=== PATIENT | female | born 1955 | race Caucasian/White ===

== ENCOUNTER 2022-09-23 13:11 | Inpatient (IN) | payer MEDICARE, SELFPAY ==
--- NOTE | ~2022-09-23 | CT_ITS ---
EXAMINATION: CT ABDOMEN AND PELVIS WITH CONTRAST CLINICAL INFORMATION: Left lower quadrant abdominal pain COMPARISON: None TECHNIQUE: Multidetector volumetric images were obtained from the superior aspect of the liver through the pubic symphysis following administration 85 mL of Omnipaque 350 intravenous contrast. Sagittal and coronal reformatted images were obtained on the technologist's workstation. Oral contrast: No This CT examination was performed using dose optimization techniques as appropriate, variously including the following: *Automated exposure control *Adjustment of mA and/or kV according to patient size (this includes techniques or standardized protocols for targeted exams where dose is matched to indication/reason for exam; i.e. extremities or head) *Use of iterative reconstruction technique DLP: 290 mGy-cm FINDINGS: LUNG BASES: The pleural-based 5 mm lung nodule posterior medial right lower lobe image 1212 series 14. This is unchanged since CAT scan of 03/03/2015 consistent with a benign nodule. No further follow-up imaging needed. No pleural effusion. LIVER, GALLBLADDER, AND BILIARY TREE: The liver is normal in size, shape, and attenuation. No focal hepatic lesion or biliary ductal dilatation is present. The gallbladder is unremarkable with no evidence of radiopaque gallstones, gallbladder wall thickening, or obvious pericholecystic inflammatory changes. PANCREAS: Unremarkable. SPLEEN: Unremarkable. ADRENAL GLANDS: Unremarkable. KIDNEYS AND URETERS: The kidneys are normal in size, shape, and attenuation. No hydronephrosis, hydroureter, or calculi seen. No perinephric stranding. BLADDER: Unremarkable. GASTROINTESTINAL TRACT: Diverticulosis of the sigmoid colon and descending colon with numerous diverticula. There is a focal area of colonic bowel wall thickening of the junction of descending colon and proximal sigmoid colon with surrounding edema. This may be due to focal diverticulitis. Neoplastic process though not excluded this time. There is no perforation or abscess. No obstruction. Moderate volume of stool in the colon. Status post appendectomy. Small bowel unremarkable. Small hiatal hernia. ABDOMINAL WALL: No significant hernia is appreciated. LYMPH NODES: Normal. VASCULAR: Unremarkable. PELVIC VISCERA: Unremarkable. OSSEOUS STRUCTURES: Unremarkable. CT/CT abdomen pelvis w IV con IMPRESSION: 1. Diverticulosis of the colon. Focal area of colonic bowel wall thickening with surrounding edema at the junction of descending colon and sigmoid colon. This may be due to focal diverticulitis. Neoplastic process though not excluded this time. Recommend follow-up exam to ensure complete resolution. Fleischner guidelines were followed.
--- NOTE | 2022-09-23 13:52 | ED.ABDPAIN ---
HPI - Abdominal Pain General Chief Complaint: Abdominal Pain <EFRA Moreno - Last Filed: 09/23/22 13:55> Stated Complaint: Lower abd pain <EFRA Moreno - Last Filed: 09/23/22 13:55> Time Seen by Provider: 09/23/22 17:56 <EFRA Moreno - Last Filed: 09/23/22 13:55> Source: patient <Cathleen Grossman NP - Last Filed: 09/24/22 00:57> Mode of arrival: ambulatory <Cathleen Grossman NP - Last Filed: 09/24/22 00:57> Limitations: no limitations <Cathleen Grossman NP - Last Filed: 09/24/22 00:57> History of Present Illness HPI narrative: 67-year-old female presents with left lower quadrant abdominal pain that started yesterday. She states the pain is so intense that it difficult for her to eat. She has had 2 C sections and an appendectomy. She does not report any family history of colon cancer, and her last colonoscopy was approximately 7 years ago with no significant findings. She reports to be tired, but denies chest pain or pressure, palpitations, nausea, vomiting, diarrhea, melena, hematochezia, and change in bowel habits. <Cathleen Grossman NP - Last Filed: 09/24/22 00:57> MD elicited complaint: abdominal pain <Cathleen Grossman NP - Last Filed: 09/24/22 00:57> Onset (ago): day(s) (1) <Cathleen Grossman NP - Last Filed: 09/24/22 00:57> Pain Consistency: constant <Cathleen Grossman NP - Last Filed: 09/24/22 00:57> Location: LLQ <Cathleen Grossman NP - Last Filed: 09/24/22 00:57> Severity: severe <Cathleen Grossman NP - Last Filed: 09/24/22 00:57> Pain scale (0-10): 9 <Cathleen Grossman NP - Last Filed: 09/24/22 00:57> Quality: aching <Cathleen Grossman NP - Last Filed: 09/24/22 00:57> Radiation: none <Cathleen Grossman NP - Last Filed: 09/24/22 00:57> Migration to: no migration <MARCY Phillips Last Filed: 09/24/22 00:57> Exacerbating factors: eating and movement <Cathleen Grossman NP - Last Filed: 09/24/22 00:57> Relieving factors: nothing <Cathleen Grossman NP - Last Filed: 09/24/22 00:57> Treatments prior to arrival: NSAIDs <MARCY Phillips Last Filed: 09/24/22 00:57> Related Data Home Medications: Previous Rx's Medication Instructions Recorded clonazepam 0.5 mg tablet 0.5 mg PO DAILY PRN anxiety 30 04/28/22 days #30 tabs <EFRA Moreno - Last Filed: 09/23/22 13:55> Allergies/Adverse Reactions: Allergies Allergy/AdvReac Type Severity Reaction Status Date / Time levofloxacin [Levaquin] AdvReac Intermediate nausea and Verified 09/23/22 13:55 vomiting <EFRA Moreno - Last Filed: 09/23/22 13:55> Review of Systems Review of Systems Constitutional: No Fever, No Chills ENT/Mouth: No Ear Pain, No Hoarseness, No sore throat Eyes: No Eye Pain, No Swelling, No Redness, No Foreign Body Cardiovascular: No Chest Pain, No SOB Respiratory: No Cough, No Dyspnea Gastrointestinal: No Nausea, No Vomiting, No Diarrhea, positive left lower quadrant abdominal Pain Genitourinary: No Dysuria, No Hematuria Musculoskeletal: No joint pain, No Myalgias, No Joint Swelling Skin: No Skin lacerations, No rash Neuro: No Weakness, No Numbness, No Paresthesias, No Loss of Consciousness, No Dizziness, No Headache <MARCY Phillips Last Filed: 09/24/22 00:57> Yes all other systems are reviewed and are negative <Cathleen Grossman NP - Last Filed: 09/24/22 00:57> [facility] Past Medical History Attestation statement: The following information was validated with the patient. <MARCY Phillips Last Filed: 09/24/22 00:57> Source: old records reviewed <Cathleen Grossman NP - Last Filed: 09/24/22 00:57> Medical History: Medical History Anxiety <EFRA Moreno - Last Filed: 09/23/22 13:55> Surgical History: Surgical History History of appendectomy History of section History of tonsillectomy <EFRA Moreno - Last Filed: 09/23/22 13:55> Family History Family History: Family History Father CVD (cardiovascular disease) Mother Lung cancer Diabetes Maternal Uncle Colon cancer Maternal Grandmother Cancer <EFRA Moreno - Last Filed: 09/23/22 13:55> Social History Social History: Social History Housing: House Patient Tobacco Use Status: Former Tobacco user Tobacco use type: Cigarette Smoked in Last 30 Days: No e-Cigarette/Vaping Use: Never Used Second Hand Smoke Exposure: No Use of substances other than those prescribed or required for medical reasons: No Advance Directives: No Advance Directives Information Provided: Yes service: No Current occupational status: employed <EFRA Moreno - Last Filed: 09/23/22 13:55> Physical Exam ED Vital Signs: Vital Signs - 24 hr 09/23/22 13:53 09/23/22 16:59 09/23/22 17:48 Temperature 98.7 F 99.4 F Pulse Rate 107 H 100 104 H Respiratory Rate 16 18 20 Blood Pressure 122/61 134/55 L 127/49 L Pulse Oximetry 98 100 Oxygen Delivery Method Room Air Room Air Oxygen Flow Rate 100 09/23/22 20:09 Temperature 98.6 F Pulse Rate 97 Respiratory Rate Blood Pressure 106/38 L Pulse Oximetry 97 Oxygen Delivery Method Room Air Oxygen Flow Rate BMI result Body Mass Index 18.8 <EFRA Moreno - Last Filed: 09/23/22 13:55> Vital Signs - 24 hr 09/23/22 13:53 09/23/22 16:59 12/09/22 17:48 Temperature 98.7 F 99.4 F Pulse Rate 107 H 100 104 H Respiratory Rate 16 18 20 Blood Pressure 122/61 134/55 L 127/49 L Pulse Oximetry 98 100 Oxygen Delivery Method Room Air Room Air Oxygen Flow Rate 100 09/23/22 20:09 Temperature 98.6 F Pulse Rate 97 Respiratory Rate Blood Pressure 106/38 L Pulse Oximetry 97 Oxygen Delivery Method Room Air Oxygen Flow Rate BMI result Body Mass Index 18.8 <Cathleen Grossman NP - Last Filed: 09/24/22 00:57> Appearance: Alert. Oriented X3. Moderate distress. Eyes: Pupils equal, round and reactive to light. ENT: Pharynx normal. Neck: Normal inspection. Neck supple. CVS: Tachycardic heart rate and rhythm. Pulses normal. Respiratory: No respiratory distress. Breath sounds normal. Abdomen: Soft and left lower quadrant tenderness to palpation, no distention or rigidity. No rebound. Skin: Skin warm and dry. Normal skin color. Normal skin turgor. Extremities: No lower extremity edema. Gait well-balanced well coordinated. Neuro: No motor deficit. No sensory deficit. Cranial nerves 2-12 intact. <Cathleen Grossman NP - Last Filed: 09/24/22 00:57> Course Course Course Narrative: RME--67yo F w/pmhx anxiety c/o LLQ abd pain since last night. Reports pain is constant, nonradiating. Denies associated fever, chills, nausea/vomiting, diarrhea/constipation, dysuria/hematuria, vaginal bleeding/discharge Abdomen soft with left lower quadrant tenderness on exam, no CVA tenderness. Concern for diverticulitis Plan: Labs, UA, CT abdomen/pelvis, IV have ordered triage <EFRA Moreno - Last Filed: 09/23/22 13:55> RME--67yo F w/pmhx anxiety c/o LLQ abd pain since last night. Reports pain is constant, nonradiating. Denies associated fever, chills, nausea/vomiting, diarrhea/constipation, dysuria/hematuria, vaginal bleeding/discharge Abdomen soft with left lower quadrant tenderness on exam, no CVA tenderness. Concern for diverticulitis Plan: Labs, UA, CT abdomen/pelvis, IV have ordered triage 67-year-old female presents for left lower quadrant abdominal pain. Labs drawn while she was in the emergency department waiting room, white count of 15.2, H&H 13.3/40.1, lactic 1.1, low likelihood of sepsis at this time. 20:20 CT scan indicates diverticulosis with focal area of colonic bowel wall thickening and surrounding edema at the junction of the descending colon and sigmoid colon. This may be focal diverticulitis versus neoplastic process. Plan of care is for admission. I did discuss this case with the hospitalist as well as Gastroenterology. Gastroenterology will round on her in the morning. Patient will be admitted for colitis versus neoplasm. Patient verbalized understanding of and agrees to plan of care for admission. Verbalized understanding of signs and symptoms indicating need for emergent intervention. <Cathleen Grossman NP - Last Filed: 09/24/22 00:57> Consultations Consultation #1: Veena <Cathleen Grossman NP - Last Filed: 09/24/22 00:57> Time: 20:20 <Cathleen Grossman NP - Last Filed: 09/24/22 00:57> Consultation #2: Yehuda <Cathleen Grossman NP - Last Filed: 09/24/22 00:57> Time: 20:25 <Cathleen Grossman NP - Last Filed: 09/24/22 00:57> Medical Decision Making Medical Decision Making Differential Diagnoses: Differential diagnosis (Diverticulitis, colitis, perforated bowel, abdominal abscess) <Cathleen Grossman NP - Last Filed: 09/24/22 00:57> Consideration of admission/observation: Consideration of Admission/Observation (Patient will be admitted) <Cathleen Grossman NP - Last Filed: 09/24/22 00:57> Discussion of management with other physician/healthcare provider/other source (e.g., hospitalist, furniture rental consultant, behavioral health): Discussion w/other physician/healthcare provider Management of the patient was discussed with: Hospitalist and Insulation Nozzleman My interpretation is <MARCY Phillips Last Filed: 09/24/22 00:57> Lab Attestation: I reviewed the patient's lab results. <MARCY Phillips Last Filed: 09/24/22 00:57> Discussion of test interpretation with radiology: Discussion of test interpretation with radiology FINDINGS: LUNG BASES: The pleural-based 5 mm lung nodule posterior medial right lower lobe image 1212 series 14. This is unchanged since CAT scan of 03/03/2015 consistent with a benign nodule. No further follow-up imaging needed. No pleural effusion.? LIVER, GALLBLADDER, AND BILIARY TREE: The liver is normal in size, shape, and attenuation. No focal hepatic lesion or biliary ductal dilatation is present. The gallbladder is unremarkable with no evidence of radiopaque gallstones, gallbladder wall thickening, or obvious pericholecystic inflammatory changes.? PANCREAS: Unremarkable.? SPLEEN: Unremarkable.? ADRENAL GLANDS: Unremarkable.? KIDNEYS AND URETERS: The kidneys are normal in size, shape, and attenuation. No hydronephrosis, hydroureter, or calculi seen. No perinephric stranding. ? BLADDER: Unremarkable.? GASTROINTESTINAL TRACT: Diverticulosis of the sigmoid colon and descending colon with numerous diverticula. There is a focal area of colonic bowel wall thickening of the junction of descending colon and proximal sigmoid colon with surrounding edema. This may be due to focal diverticulitis. Neoplastic process though not excluded this time. There is no perforation or abscess. No obstruction. Moderate volume of stool in the colon. Status post appendectomy. Small bowel unremarkable. Small hiatal hernia. ABDOMINAL WALL: No significant hernia is appreciated.? LYMPH NODES: Normal. VASCULAR: Unremarkable. PELVIC VISCERA: Unremarkable.? OSSEOUS STRUCTURES: Unremarkable.? CT/CT abdomen pelvis w IV con IMPRESSION: 1.? Diverticulosis of the colon. Focal area of colonic bowel wall thickening with surrounding edema at the junction of descending colon and sigmoid colon. This may be due to focal diverticulitis. Neoplastic process though not excluded this time. Recommend follow-up exam to ensure complete resolution. ? Fleischner guidelines were followed. <Cathleen Grossman NP - Last Filed: 09/24/22 00:57> Medications Administered Generic Name Dose Route Start Last Admin Trade Name Freq PRN Reason Stop Dose Admin Enoxaparin Sodium 40 mg 09/23/22 22:00 09/23/22 22:36 Enoxaparin Sodium 40 Mg/0.4 Ml Syringe SUBCUT 40 mg Q24H BOUBACAR Administration Sodium Chloride 3 ml 09/24/22 00:00 09/23/22 23:52 0.9 % Sodium Chloride Flush 3 Ml Syringe IVFLUSH Not Given QSHIFT BOUBACAR Discontinued Medications Generic Name Dose Route Start Last Admin Trade Name Charly PRN Reason Stop Dose Admin Acetaminophen 650 mg 09/23/22 19:30 09/23/22 19:39 Acetaminophen 325 Mg Tablet PO 09/23/22 19:31 650 mg ONCE ONE Administration Sodium Chloride 1,000 mls @ 999 mls/hr 09/23/22 14:00 09/23/22 19:02 Ns IV 09/23/22 15:00 Infused .Q1H1M BOUBACAR Infusion Ceftriaxone Sodium 1 gm/ 50 mls @ 100 mls/hr 09/23/22 18:15 09/23/22 19:31 Sodium Chloride IV 09/23/22 18:44 Infused ONCE ONE Infusion Metronidazole 500 mg in 100 mls @ 100 mls/hr 09/23/22 18:15 09/23/22 20:46 Flagyl IV 09/23/22 19:14 Infused ONCE ONE Infusion Sodium Chloride 1,360.77 mls @ 1,360.77 mls/hr 09/23/22 21:22 09/23/22 22:35 Ns 30 ml/kg infuse over 1 hr (1360.77 ml) 09/23/22 22:21 1,360.77 mls/hr IV Administration .Q1H STA Ceftriaxone Sodium 1 gm/ 50 mls @ 100 mls/hr 09/23/22 21:23 09/23/22 22:29 Sodium Chloride IV 09/23/22 21:52 Not Given ONCE ONE Iohexol 100 ml 09/23/22 18:11 09/23/22 18:12 Iohexol 350 Mg/Ml 100 Ml Infus..Btl IV 09/23/22 18:12 85 ml ONCE ONE Administration Morphine Sulfate 2 mg 09/23/22 19:30 09/23/22 20:25 Morphine Sulfate 2 Mg/Ml Cartridge IVPUSH 09/23/22 19:31 Not Given ONCE ONE Protocol Ondansetron HCl 4 mg 09/23/22 19:30 09/23/22 20:26 Ondansetron Hcl 4 Mg/2 Ml Vial IVPUSH 09/23/22 19:31 Not Given ONCE ONE <EFRA Moreno - Last Filed: 09/23/22 13:55> Medications Administered Generic Name Dose Route Start Last Admin Trade Name Frestone PRN Reason Stop Dose Admin Enoxaparin Sodium 40 mg 09/23/22 22:00 09/23/22 22:36 Enoxaparin Sodium 40 Mg/0.4 Ml Syringe SUBCUT 40 mg Q24H BOUBACAR Administration Sodium Chloride 3 ml 09/24/22 00:00 09/23/22 23:52 0.9 % Sodium Chloride Flush 3 Ml Syringe IVFLUSH Not Given QSHIFT BOUBACAR Discontinued Medications Generic Name Dose Route Start Last Admin Trade Name Charly PRN Reason Stop Dose Admin Acetaminophen 650 mg 09/23/22 19:30 09/23/22 19:39 Acetaminophen 325 Mg Tablet PO 09/23/22 19:31 650 mg ONCE ONE Administration Sodium Chloride 1,000 mls @ 999 mls/hr 09/23/22 14:00 09/23/22 19:02 Ns IV 09/23/22 15:00 Infused .Q1H1M BOUBACAR Infusion Ceftriaxone Sodium 1 gm/ 50 mls @ 100 mls/hr 09/23/22 18:15 09/23/22 19:31 Sodium Chloride IV 09/23/22 18:44 Infused ONCE ONE Infusion Metronidazole 500 mg in 100 mls @ 100 mls/hr 09/23/22 18:15 09/23/22 20:46 Flagyl IV 09/23/22 19:14 Infused ONCE ONE Infusion Sodium Chloride 1,360.77 mls @ 1,360.77 mls/hr 09/23/22 21:22 09/23/22 22:35 Ns 30 ml/kg infuse over 1 hr (1360.77 ml) 09/23/22 22:21 1,360.77 mls/hr IV Administration .Q1H STA Ceftriaxone Sodium 1 gm/ 50 mls @ 100 mls/hr 09/23/22 21:23 09/23/22 22:29 Sodium Chloride IV 09/23/22 21:52 Not Given ONCE ONE Iohexol 100 ml 09/23/22 18:11 09/23/22 18:12 Iohexol 350 Mg/Ml 100 Ml Infus..Btl IV 09/23/22 18:12 85 ml ONCE ONE Administration Morphine Sulfate 2 mg 09/23/22 19:30 09/23/22 20:25 Morphine Sulfate 2 Mg/Ml Cartridge IVPUSH 09/23/22 19:31 Not Given ONCE ONE Protocol Ondansetron HCl 4 mg 09/23/22 19:30 09/23/22 20:26 Ondansetron Hcl 4 Mg/2 Ml Vial IVPUSH 09/23/22 19:31 Not Given ONCE ONE <Cathleen Grossman NP - Last Filed: 09/24/22 00:57> Discharge Plan Discharge Clinical Impression: Diverticulitis, Abdominal pain <EFRA Moreno - Last Filed: 09/23/22 13:55> Patient Disposition: Admitted As Inpatient <EFRA Moreno - Last Filed: 09/23/22 13:55> Discharge Date/Time: 09/24/22 00:47 <EFRA Moreno - Last Filed: 09/23/22 13:55>
[2022-09-23 13:53] VITALS: BP 122/61; PULSE 107; RESP 16; TEMP 37.1; O2SAT 98; BMI 18.8
[2022-09-23 14:10] LABS: Basophils Absolute Auto 0.1 X10*3/uL (0.0-0.2); Basophils Percent Auto 0.3 % (0-2); Eosinophils Percent Auto 0.3 % (0-4); Hematocrit 40.1 % (37.0-47.0); Hemoglobin 13.3 g/dl (12.0-16.0); Imm Gran Abs Auto 0.07 X10*3/uL (0.00-0.03); Imm Gran Pct Auto 0.5 % (0.0-0.4); Lymphocytes Absolute Auto 1.5 X10*3/uL (1.2-4.9); Lymphocytes Percent Auto 9.7 % (20-40); MANUAL DIFF FLAG NO; Mean Corpuscular HGB Conc 33.2 g/dl (31.0-35.0); Mean Corpuscular Hemoglobin 30.6 pg (27.0-33.0); Mean Corpuscular Volume 92.4 fL (80.0-98.0); Mean Platelet Volume 9.6 fL (9.4-12.3); Monocytes Absolute Auto 1.3 X10*3/uL (0.1-1.2); Monocytes Percent Auto 8.4 % (2-11); Neutrophils Absolute Auto 12.3 x10*3/uL (2.0-8.3); Neutrophils Percent Auto 80.8 % (45-73); Platelet Count 366 X10*3/uL (160-400); Red Blood Count 4.34 X10*6/uL (4.20-5.50); Red Cell Distribution Width 13.8 % (11.0-16.0); White Blood Count 15.2 X10*3/uL (4.8-10.8)
[2022-09-23 14:29] LABS: Alanine Aminotransferase 26 U/L (0-31); Albumin Level 4.4 g/dL (3.5-5.0); Alkaline Phosphatase 140 U/L (39-117); Anion Gap 12 (12-20); Aspartate Amino Transferase 24 U/L (5-31); Bilirubin Direct 0.4 mg/dL (0.0-0.5); Bilirubin Total 1.2 mg/dL (0.0-1.0); Blood Urea Nitrogen 8 mg/dL (9-16); Calcium 9.5 mg/dL (8.4-10.2); Carbon Dioxide 28 mmol/L (22-29); Chloride 103 mmol/L (96-108); Creatinine Clr Calc Pharmacy 50.1; Estimated Glomerular Filt Rate > 60; Glucose Random 110 mg/dL (60-115); Lipase 67 U/L (8-78); Magnesium 2.3 mg/dL (1.6-2.6); Sodium 139 mmol/L (135-145); Total Protein 6.9 g/dL (6.5-8.0)
[2022-09-23 16:59] VITALS: BP 134/55; PULSE 100; RESP 18; O2SAT 100
[2022-09-23 17:10] LABS: Appearance Urine Clear; Color Urine Yellow; Glucose Urine UA Negative (Negative); Leukocyte Esterase Urine Negative (Negative); Nitrite Urine Negative (Negative); Specific Gravity - Urine 1.015 (1.005-1.025); Urine Blood Negative (Negative); Urine Ketones 15 mg/dL (Negative); Urine Protein Negative (Neg-Trace)
[2022-09-23 17:48] VITALS: BP 127/49; PULSE 104; RESP 20; TEMP 37.4
[2022-09-23] MEDS: 0.9 % Sodium Chloride 1,000 ML 999 ML IV (17:49)
[2022-09-23] MEDS: iohexoL 350 MG/ML 100 ML INFUS..BTL IV (18:12)
[2022-09-23] MEDS: cefTRIAXone sodium 1 GM in 0.9 % Sodium Chloride 50 ML IV (19:00)
[2022-09-23 19:20] LABS: Lactic Acid 1.1 mmol/L (0.5-2.0)
[2022-09-23] MEDS: metroNIDAZOLE/NS 500 MG/100 ML PIGGYBACK 100 MG IV (19:31)
[2022-09-23] MEDS: Acetaminophen 325 MG TABLET 650 MG PO (19:39)
[2022-09-23 20:09] VITALS: BP 106/38; PULSE 97; TEMP 37; O2SAT 97
--- NOTE | 2022-09-23 20:21 | PC.NURSE ---
Assumed care of patient. Patient is resting quietly watching tv. No apparent distress. Delaying morphine and zofran per patient. Patient wants to see if tylenol administered earlier will suffice for pain she has been experiencing. Patient's boyfriend was at bedside just left. His contact information [phone] Gene Keys (Ronnie).
--- NOTE | 2022-09-23 20:42 | PC.NURSE ---
pt arrived alert and oriented resting comfortably in the room IV inserted, fluid started breathing equally unlabored
--- NOTE | 2022-09-23 21:24 | PM.IMHP ---
History of Present Illness Date of Service: 09/23/22 Chief Complaint: Abdominal Pain This is a 67 year old female with pertinent history of mood disorder emergency department for evaluation of abdominal pain. Patient states she started having left lower quadrant pain 1 day prior to presentation, nonradiating and has been progressive. Has had decreased in p.o. intake with nausea due to the same. Does endorse chills. No fever. Denies similar complaints in the past. She had a colonoscopy 7 months ago. No personal history of cancer. Smokes cigarettes when she was a teenager. Patient denies chest discomfort, fever, palpitations, shortness of breath, changes in urinary habits. In the emergency department, imaging was concerning for diverticulitis. Review of Systems Constitutional: Constitutional: Reports chills, Reports fatigue and Reports malaise Cardiovascular: Cardiovascular: Reports no additional cardiovascular complaints Respiratory: Respiratory: Reports no additional respiratory complaints Gastrointestinal: Gastrointestinal: Reports abdominal pain and Reports nausea Genitourinary: Genitourinary: Reports no additional female genitourinary complaints Endocrine: Endocrine: Reports fatigue REPLACED BY [facility] Medical History Anxiety Functional capacity: independent ambulation Family History Father CVD (cardiovascular disease) Mother Lung cancer Diabetes Maternal Uncle Colon cancer Maternal Grandmother Cancer Surgical History History of appendectomy History of section History of tonsillectomy Social History Housing: House Patient Tobacco Use Status: Former Tobacco user Tobacco use type: Cigarette Smoked in Last 30 Days: No e-Cigarette/Vaping Use: Never Used Second Hand Smoke Exposure: No Use of substances other than those prescribed or required for medical reasons: No Advance Directives: No Advance Directives Information Provided: Yes service: No Current occupational status: employed Meds Allergies Allergy/AdvReac Type Severity Reaction Status Date / Time levofloxacin [Levaquin] AdvReac Intermediate nausea and Verified 09/23/22 13:55 vomiting Active Medications: Current Medications Acetaminophen (Acetaminophen 325 Mg Tablet) 650 mg PO Q6H PRN PRN Reason: Pain, Mild (Pain Scale 1-3) Enoxaparin Sodium (Enoxaparin Sodium 40 Mg/0.4 Ml Syringe) 40 mg SUBCUT Q24H [facility] Sodium Chloride (Ns) 1,360.77 mls @ 1,360.77 mls/hr 30 ml/kg infuse over 1 hr (1360.77 ml) IV .Q1H STA Stop: 09/23/22 22:21 Ceftriaxone Sodium 1 gm/ (Sodium Chloride) 50 mls @ 100 mls/hr IV ONCE ONE Stop: 09/23/22 21:52 Ceftriaxone Sodium 2 gm/ (Sodium Chloride) 50 mls @ 100 mls/hr IV DAILY [facility] Melatonin (Melatonin 3 Mg Tablet) 6 mg PO BEDTIME PRN PRN Reason: Insomnia Morphine Sulfate (Morphine Sulfate 4 Mg/Ml Cartridge) 4 mg IVPUSH Q4H PRN; Protocol PRN Reason: Pain, Severe (Pain Scale 7-10) Ondansetron HCl (Ondansetron Hcl 4 Mg/2 Ml Vial) 4 mg IVPUSH Q8H PRN PRN Reason: Nausea and Vomiting Sodium Chloride (0.9 % Sodium Chloride Flush 3 Ml Syringe) 3 ml IVFLUSH QSHIFT [facility] Physical Exam Vital Signs and Narrative: Vital Signs: Last Vital Signs Temp 98.6 F 09/23/22 20:09 Pulse 97 09/23/22 20:09 Resp 20 09/23/22 17:48 BP 106/38 L 09/23/22 20:09 Pulse Ox 97 09/23/22 20:09 O2 Del Method 09/23/22 20:09 O2 Flow Rate 100 09/23/22 17:48 BMI result Body Mass Index 18.8 Middle-aged female lying in bed in no distress Neck supple, no JVD Regular rate and rhythm, S1-S2 heard Regular breath sounds bilaterally, no wheezing or crackles appreciated Abdomen with left lower quadrant tenderness, no rebound tenderness, no rigidity, no guarding Patient is awake, alert and oriented to self, place, time and person ; no focal motor deficit Psych: Normal mood No pedal edema Results Labs CBC and Chem 7: 09/23/22 14:05 09/23/22 14:05 Labs: Laboratory Results - last 24 hr 09/23/22 09/23/22 09/23/22 14:05 14:05 17:00 MCV 92.4 MCH 30.6 MCHC 33.2 RDW 13.8 Plt Count 366 MPV 9.6 Immature Gran % (Auto) 0.5 H Neut % (Auto) 80.8 H Lymph % (Auto) 9.7 L [place] % (Auto) 8.4 Eos % (Auto) 0.3 Baso % (Auto) 0.3 Lymph # (Auto) 1.5 [place] # (Auto) 1.3 H Eos # (Auto) 0.0 Baso # (Auto) 0.1 Abs Immat Gran (auto) 0.07 H Absolute Neuts (auto) 12.3 H Absolute Nucleated RBC 0.000 Nucleated RBC % (auto) 0.0 Anion Gap 12 Estim Creat Clear Calc 50.1 Estimated GFR > 60 Random Glucose 110 Lactic Acid Calcium 9.5 Magnesium 2.3 Total Bilirubin 1.2 H Direct Bilirubin 0.4 AST 24 ALT 26 Alkaline Phosphatase 140 H Total Protein 6.9 Albumin 4.4 Lipase 67 Urine Color Yellow Urine Appearance Clear Urine pH 7.0 Ur Specific [place] 1.015 Urine Protein Negative Urine Glucose (UA) Negative Urine Ketones 15 Urine Blood Negative Urine Nitrite Negative Ur Leukocyte Esterase Negative 09/23/22 19:00 MCV MCH MCHC RDW Plt Count MPV Immature Gran % (Auto) Neut % (Auto) Lymph % (Auto) [place] % (Auto) Eos % (Auto) Baso % (Auto) Lymph # (Auto) [place] # (Auto) Eos # (Auto) Baso # (Auto) Abs Immat Gran (auto) Absolute Neuts (auto) Absolute Nucleated RBC Nucleated RBC % (auto) Anion Gap Estim Creat Clear Calc Estimated GFR Random Glucose Lactic Acid 1.1 Calcium Magnesium Total Bilirubin Direct Bilirubin AST ALT Alkaline Phosphatase Total Protein Albumin Lipase Urine Color Urine Appearance Urine pH Ur Specific [place] Urine Protein Urine Glucose (UA) Urine Ketones Urine Blood Urine Nitrite Ur Leukocyte Esterase Imaging Radiologist's Impressions: Impressions Abdomen/Pelvis CT 09/23/22 18:27 IMPRESSION: 1. Diverticulosis of the colon. Focal area of colonic bowel wall thickening with surrounding edema at the junction of descending colon and sigmoid colon. This may be due to focal diverticulitis. Neoplastic process though not excluded this time. Recommend follow-up exam to ensure complete resolution. Fleischner guidelines were followed. Assessment and Plan (1) Diverticulitis: Status: Acute (2) Anxiety: Status: Acute Plan This is a 67 year old female with pertinent history of mood disorder emergency department for evaluation of abdominal pain. #. Sepsis due to Acute uncomplicated diverticulitis: Will admit patient and initiate empiric IV antibiotics, ceftriaxone and metronidazole. Blood cultures and lactic acid obtained. Resuscitating with sepsis protocol crystalloids. Pain controlled with IV opioids p.r.n.. Liquid diet and advanced as tolerated. Will need colonoscopy once symptom-free at around 6-8 weeks to rule out colon cancer. #. Mood disorder: Continue home clonazepam p.r.n. DVT prophylaxis: Lovenox 40 mg daily Full code Liquid diet Admit as inpatient and will require two night minimum hospital stay for IV antibiotics Time Spent With Patient Time: Total time managing care of this patient today ____ minutes. Quality Stroke Does the patient have a stroke diagnosis?: No VTE Prior VTE?: No VTE Risk Level:: Medical - moderate - high VTE Device Contraindication: Treatment Not Indicated VTE Drug Contraindication: N/A - Med Ordered
--- NOTE | 2022-09-23 22:15 | PHA.MEDREC ---
Pharmacy Consult ? Medication Reconciliation Pharmacy has completed the medication reconciliation. Patient only takes clonazepam occasionally and states she hasn't taken it in at least several days. Says she doesn't like to take medications.
[2022-09-23] MEDS: 0.9 % Sodium Chloride 1,360.77 ML 1360.77 ML IV (22:35)
[2022-09-23] MEDS: Enoxaparin Sodium 40 MG/0.4 ML SYRINGE SUBCUT (22:36)
[2022-09-23 22:44] LABS: COVID-19 Test Negative (Negative)
--- NOTE | 2022-09-24 | PC.NURSE ---
Patient resting quietly. No apparent distress. Denies nausea and anxiety.
--- NOTE | 2022-09-24 00:11 | PC.NURSE ---
Gave patient report to MAXINE Elizabeth (S3). Patient to go to rm [id number].
[2022-09-24 00:56] VITALS: BMI 20.7
[2022-09-24] MEDS: 0.9 % Sodium Chloride Flush 3 ML SYRINGE IVFLUSH ×4 (01:21→22:01)
[2022-09-24] MEDS: Acetaminophen 325 MG TABLET 650 MG PO (01:34)
[2022-09-24 03:04] VITALS: BP 108/54; PULSE 72; RESP 14; TEMP 36.7; O2SAT 98
[2022-09-24] MEDS: metroNIDAZOLE/NS 500 MG/100 ML PIGGYBACK 100 MG IV ×3 (03:32→19:30)
[2022-09-24 06:31] LABS: MANUAL DIFF FLAG NO
[2022-09-24 06:36] LABS: Basophils Absolute Auto 0.1 X10*3/uL (0.0-0.2); Basophils Percent Auto 0.8 % (0-2); Eosinophils Absolute Auto 0.1 X10*3/uL (0.0-0.4); Eosinophils Percent Auto 1.4 % (0-4); Hematocrit 33.6 % (37.0-47.0); Hemoglobin 10.6 g/dl (12.0-16.0); Imm Gran Abs Auto 0.04 X10*3/uL (0.00-0.03); Imm Gran Pct Auto 0.4 % (0.0-0.4); Lymphocytes Absolute Auto 1.5 X10*3/uL (1.2-4.9); Lymphocytes Percent Auto 16.7 % (20-40); Mean Corpuscular HGB Conc 31.5 g/dl (31.0-35.0); Mean Corpuscular Volume 95.2 fL (80.0-98.0); Mean Platelet Volume 10.5 fL (9.4-12.3); Monocytes Absolute Auto 0.9 X10*3/uL (0.1-1.2); Neutrophils Absolute Auto 6.4 x10*3/uL (2.0-8.3); Neutrophils Percent Auto 70.7 % (45-73); Platelet Count 297 X10*3/uL (160-400); Red Blood Count 3.53 X10*6/uL (4.20-5.50); Red Cell Distribution Width 14.3 % (11.0-16.0)
[2022-09-24 07:19] LABS: Anion Gap 12 (12-20); Blood Urea Nitrogen 7 mg/dL (9-16); Calcium 8.2 mg/dL (8.4-10.2); Carbon Dioxide 24 mmol/L (22-29); Chloride 110 mmol/L (96-108); Creatinine Clr Calc Pharmacy 65.4; Estimated Glomerular Filt Rate > 60; Glucose Random 75 mg/dL (60-115); Sodium 142 mmol/L (135-145)
[2022-09-24 08:00] VITALS: BP 139/80; PULSE 75; RESP 18; TEMP 36.7; O2SAT 97
[2022-09-24 08:28] VITALS: O2SAT 97
--- NOTE | 2022-09-24 10:10 | P.PNIM_ITS ---
Subjective Subjective Date of Service: 09/24/22 Interval History: cc: abd pain interval history:ongoing pain Cardiovascular Cardiovascular: Reports no additional cardiovascular complaints Respiratory Respiratory: Reports no additional respiratory complaints Physical Exam Vital Signs: Vital Signs: Last Vital Signs Temp 98.1 F 09/24/22 08:00 Pulse 75 09/24/22 08:00 Resp 18 09/24/22 08:00 BP 139/80 09/24/22 08:00 Pulse Ox 97 09/24/22 08:28 O2 Del Method 09/24/22 08:28 O2 Flow Rate 100 09/23/22 17:48 BMI result Body Mass Index 20.7 General: AO X 3, no acute distress Resp: CTA bilateral, no accessory muscles used CVS: S1,S2,RRR GI: soft, llq tender, non distended Neuro: motor grossly intact, alert Psych: appropriate affect, appropriate insight Objective Data Active Medications Acetaminophen (Acetaminophen 325 Mg Tablet) 650 mg PO Q6H PRN PRN Reason: Pain, Mild (Pain Scale 1-3) Last Admin: 09/24/22 01:34 Dose: 650 mg Documented By: GAIL Clonazepam (Clonazepam 0.5 Mg Tablet) 0.5 mg PO DAILY PRN PRN Reason: anxiety Enoxaparin Sodium (Enoxaparin Sodium 40 Mg/0.4 Ml Syringe) 40 mg SUBCUT Q24H [facility] Last Admin: 09/23/22 22:36 Dose: 40 mg Documented By: MARIAJOSE Ceftriaxone Sodium 2 gm/ (Sodium Chloride) 50 mls @ 100 mls/hr IV Q24H [facility] Metronidazole (Flagyl) 500 mg in 100 mls @ 100 mls/hr IV Q8H [facility] Last Infusion: 09/24/22 04:42 Dose: 0 mls/hr Documented By: GAIL Melatonin (Melatonin 3 Mg Tablet) 6 mg PO BEDTIME PRN PRN Reason: Insomnia Morphine Sulfate (Morphine Sulfate 4 Mg/Ml Cartridge) 4 mg IVPUSH Q4H PRN; Protocol PRN Reason: Pain, Severe (Pain Scale 7-10) Ondansetron HCl (Ondansetron Hcl 4 Mg/2 Ml Vial) 4 mg IVPUSH Q8H PRN PRN Reason: Nausea and Vomiting Pharmacy Consult (Consult Rx Perform Med Rec) 1 each MISCELLANE ONCE PRN PRN Reason: Consult order Sodium Chloride (0.9 % Sodium Chloride Flush 3 Ml Syringe) 3 ml IVFLUSH QSHIFT [facility] Last Admin: 09/24/22 10:09 Dose: 3 ml Documented By: MIC Labs CBC & Chem 7: 09/24/22 05:30 09/24/22 05:30 Labs: Laboratory Results - last 24 hr 09/23/22 09/23/22 09/23/22 14:05 14:05 17:00 MCV 92.4 MCH 30.6 MCHC 33.2 RDW 13.8 Plt Count 366 MPV 9.6 Immature Gran % (Auto) 0.5 H Neut % (Auto) 80.8 H Lymph % (Auto) 9.7 L [place] % (Auto) 8.4 Eos % (Auto) 0.3 Baso % (Auto) 0.3 Lymph # (Auto) 1.5 [place] # (Auto) 1.3 H Eos # (Auto) 0.0 Baso # (Auto) 0.1 Abs Immat Gran (auto) 0.07 H Absolute Neuts (auto) 12.3 H Absolute Nucleated RBC 0.000 Nucleated RBC % (auto) 0.0 Anion Gap 12 Estim Creat Clear Calc 50.1 Estimated GFR > 60 Random Glucose 110 Lactic Acid Calcium 9.5 Magnesium 2.3 Total Bilirubin 1.2 H Direct Bilirubin 0.4 AST 24 ALT 26 Alkaline Phosphatase 140 H Total Protein 6.9 Albumin 4.4 Lipase 67 Urine Color Yellow Urine Appearance Clear Urine pH 7.0 Ur Specific [place] 1.015 Urine Protein Negative Urine Glucose (UA) Negative Urine Ketones 15 Urine Blood Negative Urine Nitrite Negative Ur Leukocyte Esterase Negative COVID-19 (ABDON) COVID-19 Clin Com 09/23/22 09/23/22 09/24/22 19:00 22:25 05:30 MCV 95.2 MCH 30.0 MCHC 31.5 RDW 14.3 Plt Count 297 MPV 10.5 Immature Gran % (Auto) 0.4 Neut % (Auto) 70.7 Lymph % (Auto) 16.7 L [place] % (Auto) 10.0 Eos % (Auto) 1.4 Baso % (Auto) 0.8 Lymph # (Auto) 1.5 [place] # (Auto) 0.9 Eos # (Auto) 0.1 Baso # (Auto) 0.1 Abs Immat Gran (auto) 0.04 H Absolute Neuts (auto) 6.4 Absolute Nucleated RBC 0.000 Nucleated RBC % (auto) 0.0 Anion Gap Estim Creat Clear Calc Estimated GFR Random Glucose Lactic Acid 1.1 Calcium Magnesium Total Bilirubin Direct Bilirubin AST ALT Alkaline Phosphatase Total Protein Albumin Lipase Urine Color Urine Appearance Urine pH Ur Specific [place] Urine Protein Urine Glucose (UA) Urine Ketones Urine Blood Urine Nitrite Ur Leukocyte Esterase COVID-19 (ABDON) Negative COVID-19 Clin Com See Note 09/24/22 05:30 MCV MCH MCHC RDW Plt Count MPV Immature Gran % (Auto) Neut % (Auto) Lymph % (Auto) [place] % (Auto) Eos % (Auto) Baso % (Auto) Lymph # (Auto) [place] # (Auto) Eos # (Auto) Baso # (Auto) Abs Immat Gran (auto) Absolute Neuts (auto) Absolute Nucleated RBC Nucleated RBC % (auto) Anion Gap 12 Estim Creat Clear Calc 65.4 Estimated GFR > 60 Random Glucose 75 Lactic Acid Calcium 8.2 L D Magnesium Total Bilirubin Direct Bilirubin AST ALT Alkaline Phosphatase Total Protein Albumin Lipase Urine Color Urine Appearance Urine pH Ur Specific [place] Urine Protein Urine Glucose (UA) Urine Ketones Urine Blood Urine Nitrite Ur Leukocyte Esterase COVID-19 (ABDON) COVID-19 Clin Com Assessment and Plan (1) Diverticulitis: Status: Acute Plan 67 year old female with pertinent history of mood disorder came to the emergency department for evaluation of abdominal pain. Acute uncomplicated diverticulitis:? continue iv abx, advance diet as tolerated GI eval Mood disorder Continue home clonazepam p.r.n. DVT prophylaxis:? Lovenox 40 mg daily Full code reason for continued hospitalization:awaiting tolerance of solids Time Spent With Patient Time: Total time managing care of this patient today ____ minutes. Quality Stroke Does the patient have a stroke diagnosis?: No VTE Prior VTE?: No VTE Risk Level:: Medical - moderate - high VTE Device Contraindication: Treatment Not Indicated VTE Drug Contraindication: N/A - Med Ordered
--- NOTE | 2022-09-24 12:53 | MHC.CM.PN ---
IMM DELIVERED CM MET WITH PT, LIVES WITH ADULT CHILDREN IN A SINGLE FAMILY HOME. NO PRIOR SERVICES, NO DME. PT IS EMPLOYED. NO HCP BUT WILL CONSIDER FILLING ONE OUT. NO COVID VAX. PCP DR. AMAYA. DP: HOME , NO SERVICES ANTICIPATED. FAMILY WILL TRANSPORT.
--- NOTE | 2022-09-24 14:47 | P.EN_ITS ---
Event Note Date of Service: 09/24/22 Event Note: GI Consult-Hx via patient and EMR. Imp: Acute uncomplicated diverticulitis based on her clinical history and CT scan findings. I doubt this represents a neoplasm. She describes a negative colonoscopy at age 60. Clinically she has improved nicely overnight with ant ibiotics. Rec: I suspect she can be changed to po antibiotics and have her diet advanced by tomorrow if things continue to improve. I did advise her that we should definitely proceed with an outpatient colonoscopy in a couple of months to definitively exclude a neoplasm, even though the likelihood is low. I advised her that my office will arrange outpatient follow up for that. I did advise her to try to stay on a healthier diet with fiber, a lot of water, and fiber supplements if need be. If the diverticulitis becomes recurrent or associated with complications she would then need a surgical consultation. D/W her in detail. The patient was comfortable with this plan. Thanks Time Spent With Patient Time: Total time managing care of this patient today ____ minutes.
[2022-09-24 15:40] VITALS: BP 119/53; PULSE 78; RESP 18; TEMP 36.8; O2SAT 96
[2022-09-24] MEDS: cefTRIAXone sodium 2 GM in 0.9 % Sodium Chloride 50 ML IV (17:57)
[2022-09-24 19:49] VITALS: BP 118/69; PULSE 68; RESP 20; TEMP 36.8; O2SAT 99
[2022-09-24] MEDS: Enoxaparin Sodium 40 MG/0.4 ML SYRINGE SUBCUT (22:00)
[2022-09-25 02:43] VITALS: BP 119/60; PULSE 62; RESP 18; TEMP 36.9; O2SAT 95
[2022-09-25] MEDS: metroNIDAZOLE/NS 500 MG/100 ML PIGGYBACK 100 MG IV ×3 (04:13→20:32)
[2022-09-25 06:41] LABS: Hematocrit 37.3 % (37.0-47.0); Hemoglobin 12.2 g/dl (12.0-16.0); Mean Corpuscular HGB Conc 32.7 g/dl (31.0-35.0); Mean Corpuscular Hemoglobin 30.6 pg (27.0-33.0); Mean Corpuscular Volume 93.5 fL (80.0-98.0); Mean Platelet Volume 10.4 fL (9.4-12.3); Platelet Count 296 X10*3/uL (160-400); Red Blood Count 3.99 X10*6/uL (4.20-5.50); White Blood Count 7.1 X10*3/uL (4.8-10.8)
[2022-09-25 07:11] LABS: Anion Gap 14 (12-20); Blood Urea Nitrogen 5 mg/dL (9-16); Calcium 9.3 mg/dL (8.4-10.2); Carbon Dioxide 28 mmol/L (22-29); Chloride 104 mmol/L (96-108); Creatinine Clr Calc Pharmacy 58.3; Estimated Glomerular Filt Rate > 60; Glucose Fasting 93 mg/dL (60-99); Potassium 3.7 mmol/L (3.3-5.1); Sodium 142 mmol/L (135-145)
[2022-09-25 08:00] VITALS: BP 125/61; PULSE 78; RESP 18; TEMP 37.3; O2SAT 97
--- NOTE | 2022-09-25 08:50 | HO.PM.IMPN ---
Subjective Subjective Date of Service: 09/25/22 Interval History: cc: abd pain interval history:ongoing pain Cardiovascular Cardiovascular: Reports no additional cardiovascular complaints Respiratory Respiratory: Reports no additional respiratory complaints Physical Exam Vital Signs: Vital Signs: Last Vital Signs Temp 99.2 F 09/25/22 08:00 Pulse 78 09/25/22 08:00 Resp 18 09/25/22 08:00 BP 125/61 09/25/22 08:00 Pulse Ox 97 09/25/22 08:00 O2 Del Method 09/25/22 08:00 O2 Flow Rate 100 09/23/22 17:48 BMI result Body Mass Index 20.7 General: AO X 3, no acute distress Resp: CTA bilateral, no accessory muscles used CVS: S1,S2,RRR GI: soft, llq tender, non distended Neuro: motor grossly intact, alert Psych: appropriate affect, appropriate insight Objective Data Active Medications Acetaminophen (Acetaminophen 325 Mg Tablet) 650 mg PO Q6H PRN PRN Reason: Pain, Mild (Pain Scale 1-3) Last Admin: 09/24/22 01:34 Dose: 650 mg Documented By: GAIL Clonazepam (Clonazepam 0.5 Mg Tablet) 0.5 mg PO DAILY PRN PRN Reason: anxiety Enoxaparin Sodium (Enoxaparin Sodium 40 Mg/0.4 Ml Syringe) 40 mg SUBCUT Q24H [facility] Last Admin: 09/24/22 22:00 Dose: 40 mg Documented By: GAIL Ceftriaxone Sodium 2 gm/ (Sodium Chloride) 50 mls @ 100 mls/hr IV Q24H [facility] Last Infusion: 09/24/22 18:35 Dose: 0 mls/hr Documented By: MIC Metronidazole (Flagyl) 500 mg in 100 mls @ 100 mls/hr IV Q8H [facility] Last Infusion: 09/25/22 05:46 Dose: 0 mls/hr Documented By: GAIL Melatonin (Melatonin 3 Mg Tablet) 6 mg PO BEDTIME PRN PRN Reason: Insomnia Morphine Sulfate (Morphine Sulfate 4 Mg/Ml Cartridge) 4 mg IVPUSH Q4H PRN; Protocol PRN Reason: Pain, Severe (Pain Scale 7-10) Ondansetron HCl (Ondansetron Hcl 4 Mg/2 Ml Vial) 4 mg IVPUSH Q8H PRN PRN Reason: Nausea and Vomiting Pharmacy Consult (Consult Rx Perform Med Rec) 1 each MISCELLANE ONCE PRN PRN Reason: Consult order Sodium Chloride (0.9 % Sodium Chloride Flush 3 Ml Syringe) 3 ml IVFLUSH QSHIFT [facility] Last Admin: 09/24/22 22:01 Dose: 3 ml Documented By: GAIL Labs CBC & Chem 7: 09/25/22 06:13 09/25/22 06:13 Labs: Laboratory Results - last 24 hr 09/25/22 09/25/22 06:13 06:13 MCV 93.5 MCH 30.6 MCHC 32.7 RDW 14.0 Plt Count 296 MPV 10.4 Absolute Nucleated RBC 0.000 Nucleated RBC % (auto) 0.0 Anion Gap 14 Estim Creat Clear Calc 58.3 Estimated GFR > 60 Fasting Glucose 93 Calcium 9.3 D Microbiology Microbiology Results: Microbiology 09/23/22 18:58 Blood Culture - Preliminary Blood - Venous No growth after 24 hours. 09/23/22 19:00 Blood Culture - Preliminary Blood - Venous No growth after 24 hours. Assessment and Plan (1) Diverticulitis: Status: Acute Plan 67 year old female with pertinent history of mood disorder came to the emergency department for evaluation of abdominal pain. Acute uncomplicated diverticulitis:? continue iv abx, advancing to solids today GI appreciated - colonoscopy in 2 months Mood disorder Continue home clonazepam p.r.n. DVT prophylaxis:? Lovenox 40 mg daily Full code reason for continued hospitalization:awaiting tolerance of solids Time Spent With Patient Time: Total time managing care of this patient today ____ minutes. Quality Stroke Does the patient have a stroke diagnosis?: No VTE Prior VTE?: No VTE Risk Level:: Medical - moderate - high VTE Device Contraindication: Treatment Not Indicated VTE Drug Contraindication: N/A - Med Ordered
[2022-09-25] MEDS: 0.9 % Sodium Chloride Flush 3 ML SYRINGE IVFLUSH ×3 (09:50→20:31)
[2022-09-25 15:08] VITALS: BP 113/53; PULSE 88; RESP 17; TEMP 37.5; O2SAT 95
[2022-09-25] MEDS: cefTRIAXone sodium 2 GM in 0.9 % Sodium Chloride 50 ML IV (17:44)
[2022-09-25 19:14] VITALS: BP 104/55; PULSE 79; RESP 17; TEMP 36.4; O2SAT 97
[2022-09-25] MEDS: Enoxaparin Sodium 40 MG/0.4 ML SYRINGE SUBCUT (23:36)
[2022-09-26 03:51] VITALS: BP 104/51; PULSE 78; RESP 16; TEMP 37.1; O2SAT 97
[2022-09-26] MEDS: metroNIDAZOLE/NS 500 MG/100 ML PIGGYBACK 100 MG IV (03:56)
[2022-09-26 06:25] LABS: Hematocrit 37.2 % (37.0-47.0); Hemoglobin 12.2 g/dl (12.0-16.0); Mean Corpuscular HGB Conc 32.8 g/dl (31.0-35.0); Mean Corpuscular Hemoglobin 30.7 pg (27.0-33.0); Mean Corpuscular Volume 93.5 fL (80.0-98.0); Mean Platelet Volume 10.1 fL (9.4-12.3); Platelet Count 345 X10*3/uL (160-400); Red Blood Count 3.98 X10*6/uL (4.20-5.50); Red Cell Distribution Width 13.7 % (11.0-16.0); White Blood Count 6.3 X10*3/uL (4.8-10.8)
[2022-09-26 06:49] LABS: Anion Gap 15 (12-20); Blood Urea Nitrogen 8 mg/dL (9-16); Calcium 8.6 mg/dL (8.4-10.2); Carbon Dioxide 24 mmol/L (22-29); Chloride 105 mmol/L (96-108); Creatinine Clr Calc Pharmacy 59.9; Estimated Glomerular Filt Rate > 60; Glucose Fasting 95 mg/dL (60-99); Potassium 4.1 mmol/L (3.3-5.1); Sodium 140 mmol/L (135-145)
[2022-09-26 07:34] VITALS: BP 133/57; PULSE 69; RESP 20; TEMP 36.3; O2SAT 99
[2022-09-26] MEDS: 0.9 % Sodium Chloride Flush 3 ML SYRINGE IVFLUSH (09:36)
--- NOTE | 2022-09-26 09:46 | PM.DS ---
DS: Providers Provider Date of Service: 09/26/22 Date of admission: 09/23/22 21:19 Primary care physician: Lulu Faria MD Consults: 09/24/22 07:43 Consult to Gastroenterology Routine Consulting Provider: Mannie Curiel Reason for consultation: ?dvierticulitis vs neoplasm on CT DS: Diagnosis Discharge Diagnosis (1) Diverticulitis: Status: Acute DS: Summary Hospital Course Hospital Course: from initial hpi: Chief Complaint: Abdominal Pain This is a 67 year old female with pertinent history of mood disorder emergency department for evaluation of abdominal pain.? Patient states she started having left lower quadrant pain 1 day prior to presentation, nonradiating and has been progressive.? Has had decreased in p.o. intake with nausea due to the same.? Does endorse chills.? No fever.? Denies similar complaints in the past.? She had a colonoscopy 7 months ago.? No personal history of cancer.? Smokes cigarettes when she was a teenager.? Patient denies chest discomfort, fever, palpitations, shortness of breath, changes in urinary habits. In the emergency department, imaging was concerning for diverticulitis. hospital course: Patient was admitted for acute uncomplicated diverticulitis, she required IV antibiotics and her diet was slowly advanced to the point where she is now tolerating solid diet. She will be discharged on 7 more days of Augmentin. She was seen by Gastroenterology recommended colonoscopy in about 2 months. For mood disorder she was continued on p.r.n. Xanax. Patient is feeling better will be discharged home. Time Spent with Patient Time attestation: Total time managing care of this patient today ____ minutes. Discharge coordination time: Greater than 30 minutes Quality: Safe Use of Opioids Does Pt have an Active Cancer Diagnosis on the Problem List?: No Quality: Stroke Does the patient have a stroke diagnosis?: No Physical Exam Vital Signs: Vital Signs: Last Vital Signs Temp 97.3 F 09/26/22 07:34 Pulse 69 09/26/22 07:34 Resp 20 09/26/22 07:34 BP 133/57 L 09/26/22 07:34 Pulse Ox 99 09/26/22 07:34 O2 Del Method 09/26/22 07:34 O2 Flow Rate 100 09/23/22 17:48 BMI result Body Mass Index 20.7 General: AO X 3, no acute distress Resp: CTA bilateral, no accessory muscles used CVS: S1,S2,RRR GI: soft, llq tenderness improved, non distended Neuro: motor grossly intact, alert Psych: appropriate affect, appropriate insight DS: Data Data Completed and Pending Labs on day of discharge: Laboratory Results - last 24 hr 09/26/22 09/26/22 05:45 05:45 WBC 6.3 RBC 3.98 L Hgb 12.2 Hct 37.2 MCV 93.5 MCH 30.7 MCHC 32.8 RDW 13.7 Plt Count 345 MPV 10.1 Absolute Nucleated RBC 0.000 Nucleated RBC % (auto) 0.0 Sodium 140 Potassium 4.1 Chloride 105 Carbon Dioxide 24 Anion Gap 15 BUN 8 L Creatinine 0.72 Estim Creat Clear Calc 59.9 Estimated GFR > 60 Fasting Glucose 95 Calcium 8.6 D Preliminary micro results at discharge 09/23/22 18:58 Blood Culture - Preliminary Blood - Venous No growth after 48 hours. 09/23/22 19:00 Blood Culture - Preliminary Blood - Venous No growth after 48 hours. Discharge Plan Discharge Anticipated Discharge Date/Time: 09/26/22 09:37 Patient Disposition: Home, Self-Care Discharge Diagnosis: diverticulitis Referrals: Lulu Jefferson MD [Primary Care Provider] - 1 Week Mannie Curiel [Physician] - 1 Month Discharge Medications: New amoxicillin-pot clavulanate 875-125 mg tablet 1 tab PO Q12H Qty: 14 0RF Continued clonazepam 0.5 mg tablet 0.5 mg PO DAILY PRN (Reason: anxiety) 30 Days Qty: 30 0RF Discharge Orders: Discharge Order (Routine); Ordered 09/26/22 Ordered By: Kevan Dang Diet: low fibre Activity on Discharge: As tolerated Stand Alone Forms: Patient Portal Discharge page Care Plan Goals: recovery Health Concerns: diverticulitis Plan of Treatment: augmentin 1 week, follow up gi for colonoscopy Assessment: see above
--- NOTE | 2022-09-26 09:58 | MHC.CM.PN ---
HOME - SELF CARE FAMILY TO [facility] AWARE OF PLAN.
--- NOTE | 2022-09-26 12:15 | CONS_ITS ---
DATE OF SERVICE: 09/24/2022 REASON FOR CONSULTATION: Abdominal pain and abnormal CT scan of colon. HISTORY OF PRESENT ILLNESS: This has been obtained from the patient and the medical record. The patient is a 67-year-old female, who describes that she was in her usual state of health up until about 2 days ago when she developed the onset of primarily left lower quadrant pain. She reports that this was new for her. Due to the severity of the pain, she came to the ER and was found to have probable diverticulitis based on the CT scan, although colonic neoplasm could not be definitively excluded. Prior to the onset of her pain, she was feeling well at her baseline. She reports that her bowel movements are somewhat irregular with occasional diarrhea, but generally not problematic. She has not noticed any hematochezia, nor melena. She does describe a negative colonoscopy at age 60 and was told to have another exam in 10 years. She does have a family history of 2 uncles with colon cancer, but no first-degree relatives with colorectal cancer, nor inflammatory bowel disease. The patient does report a somewhat hectic and stressful life, which interferes with her appetite and eating. She denies any dysphagia, nausea, nor vomiting. She denies any chronic heartburn. She reports that her weight has been stable, but her eating is somewhat poor. Since admission here, she does report that she is definitely feeling better with much less pain. She has been afebrile. MEDICATIONS: At home, clonazepam p.r.n. Medications here in the hospital include: 1. Acetaminophen. 2. IV ceftriaxone. 3. Clonazepam p.r.n. 4. IV Flagyl. 5. Morphine p.r.n. 6. Zofran p.r.n. PAST MEDICAL HISTORY: She describes 2 C sections and an appendectomy. She describes some anxiety and stress. She denies any history of heart disease, diabetes, stroke, lung disease, or kidney disease. SOCIAL HISTORY: She is a electrical machinist. She is single, but has a boyfriend. She does not smoke, nor use any significant alcohol. FAMILY HISTORY: As above. REVIEW OF SYSTEMS: CONSTITUTIONAL: She describes a lot of stress in her life, which interferes with her eating. SKIN: No rash. No pruritus. CARDIAC: No chest pain. PULMONARY: No cough. No hemoptysis. GI: As above. URINARY: She has history of UTIs, but no current urinary symptoms such as dysuria, no hematuria. PHYSICAL EXAMINATION: GENERAL: The patient is a pleasant, alert female. She appears comfortable. She has been afebrile. SKIN: Warm and dry. Nonjaundiced, anterior sclerae. NECK: Supple. CHEST: Clear. CARDIAC: Normal S1, S2. ABDOMEN: Soft. Normal bowel sounds. Nondistended. There is some focal tenderness to palpation in the left lower quadrant, but no mass, rebound, or guarding. EXTREMITIES: Without edema. LABORATORIES: Her CT scan describes diverticulosis involving the sigmoid and descending colon with a focal area of bowel wall thickening at the junction of the descending colon and proximal sigmoid colon with surrounding edema. This is felt to be probably related to diverticulitis, although a neoplastic process could not be excluded according to the radiologist. There is no sign of any abscess, nor free air. There is no bowel obstruction. No other acute changes were noted. Her initial white blood cell count was 15.2, but today is 9.0. Hemoglobin was 13.3 on admission, today is 10.6 with a normal MCV, platelets 297,000. Electrolytes: BUN and creatinine are normal. IMPRESSION: Given the patient's clinical history, I do suspect this is diverticulitis as opposed to a colonic neoplasm. Her clinical history of the acuity of the onset of her symptoms and rapid improvement in her symptoms after administration of antibiotics were tend to support that. I did review with the patient and her family today, however, that she should undergo colonoscopy in the next couple of months to be sure there is no underlying mass in that area. I would not recommend a sooner colonoscopy given the ongoing diverticulitis. I did review the importance of followup in regard to a colonoscopy and the need to definitively exclude any type of colon neoplasm. She did understand this. My office will contact her to arrange for an outpatient followup in that regard. In the meantime, I would continue antibiotics. By the looks of things, I think she could probably switch over to oral antibiotics and have her diet advanced by tomorrow. Certainly if she develops any complications of the diverticulitis, she would need a surgical consult. This has all been discussed with the patient and her family and they are comfortable with this plan. Thanks for the consultation. MD FRANCIS Meyers/MADI / [phone]
== END 2022-09-26 14:43 | disposition home or self-care (01) | DRG 392 ==
LOC: HO.ED 21:51 → HO.EDOVER 21:52 → HO.S3 23:15
PROVIDERS: Nurse Practitioner Family; Physician Assistant; Admitting Provider Student in an Organized Health Care Education/Training Program; Emergency Provider Emergency Medicine; PCP Internal Medicine; Visit Provider Internal Medicine
DX: K57.32 Diverticulitis of large intestine without perforation or abscess without bleeding (principal); F41.9 Anxiety disorder, unspecified; Z20.822 Contact with and (suspected) exposure to COVID-19; Z88.1 Allergy status to other antibiotic agents; Z79.899 Other long term (current) drug therapy
CPT/HCPCS: 36415; 74177; 80048; 80076; 81003; 83605; 83690; 83735; 85025; 85027; 87040; 87635; 99285; J0696; J1650; Q9967

== ENCOUNTER 2023-01-06 06:14 | Day surgery (SDC) | payer MEDICARE, SELFPAY ==
--- NOTE | 2023-01-05 13:48 | HO.ANESPROP2 ---
Documented by User: Shanika Damon NP 01/05/23 13:54 HPI - Anesthesia Eval Consult details Narrative: 67yo F for Colonoscopy PMFSH Active Problems Active Problems: All Active Problems (Updated 12/26/22 @ 17:37 by Lulu Faria MD) Encounter for Medicare annual wellness exam (Acute) Diverticulitis (Acute) Abdominal pain (Acute) Anxiety (Acute) Past Medical History Medical History Anxiety Kidney stone Sigmoid diverticulitis Family History Family History Father CVD (cardiovascular disease) Mother Lung cancer Diabetes Maternal Uncle Colon cancer Maternal Grandmother Cancer Surgical History Surgical History H/O colonoscopy History of appendectomy History of section History of tonsillectomy Social History Social History Household Members: Children Housing: House Do you presently have visiting nurse or other home services: No Alcohol intake: current Alcohol intake frequency: holidays/special occasions only Alcohol type: hard liquor Patient Tobacco Use Status: Former Tobacco user Tobacco use type: Cigarette e-Cigarette/Vaping Use: Never Used Second Hand Smoke Exposure: No Use of substances other than those prescribed or required for medical reasons: No Are you DNR?: No Advance Directives: No Advance Directives Information Provided: Yes Advance Directives on File: No service: No Current occupational status: employed Meds Allergies Allergy/AdvReac Type Severity Reaction Status Date / Time levofloxacin [Levaquin] AdvReac Intermediate nausea and Verified 12/26/22 17:32 vomiting Exam Exam Date and Time: January 05, [id number] Pertinent Lab Results Pertinent Lab Results: Laboratory Tests 09/26/22 09/26/22 05:45 05:45 WBC 6.3 Hgb 12.2 Hct 37.2 Plt Count 345 Sodium 140 Potassium 4.1 Chloride 105 Carbon Dioxide 24 BUN 8 L Creatinine 0.72 Documented by User: Eduarda Ruiz MD 01/06/23 08:37 PMFSH Past Medical History Medical History Anxiety Kidney stone Sigmoid diverticulitis Family History Family History Father CVD (cardiovascular disease) Mother Lung cancer Diabetes Maternal Uncle Colon cancer Maternal Grandmother Cancer Family history of problems with anesthesia: No Surgical History Surgical History H/O colonoscopy History of appendectomy History of section History of tonsillectomy History of Problems with Anesthesia: No Social History Social History Household Members: Children Housing: House Do you presently have visiting nurse or other home services: No Alcohol intake: current Alcohol intake frequency: holidays/special occasions only Alcohol type: hard liquor Patient Tobacco Use Status: Former Tobacco user Tobacco use type: Cigarette e-Cigarette/Vaping Use: Never Used Second Hand Smoke Exposure: No Use of substances other than those prescribed or required for medical reasons: No Are you DNR?: No Advance Directives: No Advance Directives Information Provided: Yes Advance Directives on File: No service: No Current occupational status: employed Meds Allergies Allergy/AdvReac Type Severity Reaction Status Date / Time levofloxacin [Levaquin] AdvReac Intermediate nausea and Verified 12/26/22 17:32 vomiting Exam Height,Weight and Vital Signs: Height 5 ft 1.5 in Weight 45.359 kg Vital Signs Temp Pulse Resp BP Pulse Ox O2 Del Method 01/06/23 06:42 96.9 F 88 16 155/51 H 97 Room Air Airway Mallampati Class: II TM Dist: >3cm Neck ROM: Full Loose/Missing/Broken Teeth: Yes (Missing teeth top back) Heart: RRR Lungs: CTAB Assessment and Plan Assessment Anesthesia Assessment: Anesthesia Plan Discussed and Chart Reviewed Final Anesthetic Review Family History of Problems with Anesthesia: No History of Problems with Anesthesia: No NPO: Yes ASA Class: II Final Preanesthetic Review: No Changes in Pt Med Stat, Meds/Allgs Chart Reviewed, Consent Obtained/Reviewed and Anes Risks/Benef Reviewed Patient Risk: Low Procedure Risk: Low Assessment/Block/Sedation in SS: Assess/Block/Sedation-SS Anesthetic Plan Anesthetic Plan: MAC: Disposition: Standard PACU
[2023-01-06 06:30] VITALS: BMI 18.6
[2023-01-06 06:42] VITALS: BP 155/51; PULSE 88; RESP 16; TEMP 36.1; O2SAT 97
[2023-01-06] MEDS: Lactated Ringers 1,000 ML 80 ML IVCONT (06:49)
[2023-01-06 08:27] VITALS: BP 102/55; PULSE 113; RESP 21; TEMP 36.3; O2SAT 99
--- NOTE | 2023-01-06 08:28 | PM.OP ---
Brief Operative Note Date of Service: 01/06/23 Pre-op diagnosis: Abnormal CT of colon Post-op diagnosis: other (Diverticulosis) Procedure: Colonoscopy to the cecum and TI Surgeon: Mannie Curiel Anesthesia: MAC Was an Construction Area Manager used for this Procedure?: No Estimated blood loss (mL): 0 Pathology: none sent Condition: stable Disposition: PACU
[2023-01-06 08:42] VITALS: BP 113/59; PULSE 88; RESP 18; TEMP 36.9; O2SAT 98
--- NOTE | 2023-01-06 09:20 | OP_ITS ---
DATE OF SERVICE: 01/06/2023 SURGEON: Mannie Curiel MD PREOPERATIVE DIAGNOSIS: Abnormal CT scan of the colon. POSTOPERATIVE DIAGNOSIS: PROCEDURE PERFORMED: Colonoscopy of the cecum and terminal ileum. ESTIMATED BLOOD LOSS: COMPLICATIONS: ANESTHESIA: Monitored anesthesia care. ASSISTANTS: SPECIMENS: POSTOPERATIVE DIAGNOSES: Abnormal CT scan of the colon, diverticulosis, and internal hemorrhoids. INDICATION: The patient presents for evaluation of abnormal CT scan of the colon. Full consent has been obtained from her for this, including risks of bleeding and perforation. DESCRIPTION OF PROCEDURE: The patient was placed in the left lateral decubitus position. The digital rectal exam revealed no abnormalities. The Olympus video pediatric colonoscope was entered into the rectum and advanced easily to the cecum. Once in the cecum, I did identify a normal-appearing cecal pouch with appendiceal orifice and a normal-appearing ileocecal valve. The terminal ileum was cannulated and appeared normal. The scope was withdrawn back in the colon. The entire cecum and ileocecal valve appeared normal. The scope was slowly withdrawn assessing all mucosal surfaces carefully. Preparation was excellent. I did not visualize any sign of other polyps, colitis, nor angiodysplasia. There was a moderate amount of sigmoid diverticulosis. There was no sign of any lesions, nor inflammation. In the rectum, the scope was retroflexed visualizing internal hemorrhoids, but no other pathology. The rectal mucosa appeared normal. The scope was straightened and withdrawn from the patient. She tolerated the procedure well, and was returned to the recovery area in stable condition. IMPRESSION: 1. Diverticulosis. 2. Internal hemorrhoids. PLAN: Given her negative exam, and no family history of first degree relatives with colorectal cancer, as well as a negative colonoscopy in 2016, I do not think she will need any further screening colonoscopies for 10 more years. She will otherwise see me on a p.r.n. basis. Mannie Curiel MD RMRosalina/SERGEL / [phone]
== END 2023-01-06 15:12 | disposition home or self-care (01) ==
PROVIDERS: PCP Internal Medicine; Visit Provider Internal Medicine
PROC: 0DJD8ZZ Inspection of Lower Intestinal Tract, Via Natural or Artificial Opening Endoscopic (ICD-10-PCS; CPT 45378; principal; 2023-01-06 07:30)
DX: R93.3 Abnormal findings on diagnostic imaging of other parts of digestive tract (principal); K57.30 Diverticulosis of large intestine without perforation or abscess without bleeding; Z87.19 Personal history of other diseases of the digestive system; K64.8 Other hemorrhoids; F41.1 Generalized anxiety disorder; Z79.899 Other long term (current) drug therapy; Z87.442 Personal history of urinary calculi
CPT/HCPCS: 45378; J2405

== ENCOUNTER 2024-01-01 17:21 | Outpatient (AMB) | payer MEDICARE, SELFPAY ==
--- NOTE | 2024-01-01 17:31 | A.OFFVIS_ITS ---
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 PPP handed to patient. Last colonoscopy was 2022 and was showing internal hemorrhoids and diverticulosis. Last mammogram was over a year ago. As per patient bone density has not been done. No chest pain or shortness of breath. Walks with no assistive device. [facility] Medical History Sigmoid diverticulitis Kidney stone Anxiety Surgical History H/O colonoscopy History of tonsillectomy History of section History of appendectomy Family History Father CVD (cardiovascular disease) Mother Lung cancer Diabetes Maternal Uncle Colon cancer Maternal Grandmother Cancer Social History Household Members: Children Housing: House Do you presently have visiting nurse or other home services: No Alcohol intake: current Alcohol intake frequency: holidays/special occasions only Alcohol type: hard liquor Patient Tobacco Use Status: Former Tobacco user Tobacco use type: Cigarette e-Cigarette/Vaping Use: Never Used Second Hand Smoke Exposure: No service: No Current occupational status: employed Cognitive needs: No Hearing needs: No Vision needs: No Questionnaire Medicare Wellness Checkup What [age] 65-69 What gender do you identify with?: female During the past 4 weeks, how much have you been bothered by emotional problems such as feeling anxious, depressed, irritable, sad or downhearted, and blue?: slightly During the past 4 weeks, has your physical & emotional health limited your social activities with family, friends, neighbors, or groups?: not at all During the past 4 weeks, how much bodily pain have you generally had?: moderate pain During the past 4 weeks, was someone available to help you if you needed & wanted help?: yes, as much as I wanted During the past 4 weeks, what was the hardest physical activity you could do for at least 2 minutes?: heavy Can you get to places out of walking distance without help? (For eg., can you travel alone on buses, taxis or drive your car?): Yes Can you go shopping for groceries or clothes without someone's help?: Yes Can you prepare your own meals?: Yes Can you do your housework without help?: Yes Because of any health problems, do you need the help of another person with your personal care needs such as eating, bathing, dressing or getting around the house?: No Can you handle your own money without help?: Yes During the past 4 weeks, how would you rate your health in general?: very good During the past 4 weeks how have things been going for you?: pretty well Are you having difficulties driving your car?: no Do you always fasten your seat belt when you are in a car?: yes, usually During past 4 weeks, have you been bothered by the following: never: Falling or dizzy when standing up, Sexual problems?, Trouble eating well?, Teeth or denture problems? and Problems using the telephone? and sometimes: Tiredness or fatigue? Have you fallen 2 or more times in the past year?: No Are you afraid of falling?: No Are you a smoker?: no During the past 4 weeks, how many drinks of wine, beer, or other alcoholic beverages did you have?: 1 drink or less per week Do you exercise for about 20 minutes 3 or more times a week?: yes, most of the time Have you been given information to help with the following?: no: Hazards in your house that might hurt you? and no: Keeping track of your medications? How often do you have trouble taking medicines the way you have been told to take them?: I always take medicine as prescribed How confident are you that you can control & manage most of your health problems?: very confident What is your race?: White Mini Mental State Exam (MMSE) Orientation What is the (year) (season) (date) (day) (month)?: year, season, date, day and month Where are we (state) (county) (town or city) (hospital) (floor)?: state, county, town or city, hospital/clinic and floor Registration Name of 3 unrelated objects clearly and slowly, then ask patient to repeat all 3 of them. (1st repeat determines score. Make sure they can repeat all three): object 1, object 2 and object 3 Attention & Calculation (CHOOSE ONE) Spell WORLD backwards (DLROW): 5 letters Recall Ask patient to repeat the 3 items from question #3.: object 1 and object 2 Language Show patient a wristwatch & ask what it is. Repeat for pencil.: watch and pencil Ask the patient to repeat the phrase 'No ifs, ands, or buts' after you.: correct Ask the patient to 'take a piece of paper with their right hand' 'fold paper in half' 'place paper on floor': take paper in right hand Print the sentence 'CLOSE YOUR EYES' on a piece. If patient actually closes eyes then score.: followed written direction Give patient a blank piece of paper & ask to write a sentence. Score if it contains a noun & verb.: sentence contains subject and verb Ask patient to copy figure of intersecting pentagons exactly. Score if all 10 angles & 2 intersects are included.: all 10 angles present & 2 are intersected Score Score: 27 Activity of Daily Living Bathing - sponge bath, tub bath or shower: receives no assistance (gets in/out by self, if usual bathing means Dressing - getting clothes from closets & drawers, including inner/outer garments & fasteners.: gets clothes & gets completely dressed without help Toileting - going to the 'toilet room' for urine/bowel elimination & cleaning self/arranging clothes: goes to toilet room, cleans self, arranges clothes without help Transfer: moves in & out of bed and chair without help (may use support object) Continence: has occasional 'accidents' Feeding: feeds self without help Total Score: 0 Information obtained from: patient Using telephone: independent Traveling: independent Shopping: independent Preparing meals: independent Housework: independent Taking medicine: independent Managing money: independent PHQ-9 Over the last 2 weeks, how often have you been bothered by any of the following problems? 1. Little interest or pleasure in doing things: not at all 2. Feeling down, depressed, or hopeless: several days 3. Trouble falling or staying asleep, or sleeping too much: several days 4. Feeling tired or having little energy: several days 5. Poor appetite or overeating: not at all 6. Feeling bad about yourself - or that you are a failure or have let yourself or your family down: not at all 7. Trouble concentrating on things, such as reading the newspaper or watching television: not at all 8. Moving or speaking so slowly that other people could have noticed. Or the opposite - being so fidgety or restless that you have been moving around a lot more than usual: not at all 9. Thoughts that you would be better off or of hurting yourself in some way: not at all Total score: 3 Depression Screening Interpretation: Negative Depression Screening Done: Yes 05624 - PHQ-9 Billing: Yes Source: Developed by Drs. Mannie Rios, Raya Rubio, Ignacio Rawls and colleagues, with an educational dilia from [employer]. AUDIT C Alcohol Use Questionnaire (AUDIT-C) 1. How often do you have a drink containing alcohol?: Monthly or less 2. How many drinks containing alcohol do you have on a typical day when you are drinking?: 1 or 2 3. How often do you have six or more drinks on one occasion?: Never Total Score: 1 Score Reviewed/Action Taken: No Thrive Questionnaire Date Thrive assessed: 01/01/24 I am a: Patient What is your living situation today?: I have a steady place to live Within the past 12 months, did the food you bought not last and you didn't have the money to get more?: Never true Within the past 12 months, did you worry whether your food would run out before you got money to buy more?: Never true Do you have trouble paying for medicines?: No Do you have trouble getting transportation to medical appointments?: No Do you have trouble paying your heating and electricity bill?: No Do you have trouble taking care of your child, family member or friend?: No Do you have trouble with day-to-day activities such as bathing, preparing meals, shopping, managing finances, etc.?: No Are you currently unemployed and looking for a job?: No Are you interested in more education?: No Please select the resources that you would like help with: None Currently or been in a relationship where the following occur: no concerns reported THRIVE Score: 0 Fall Risk Assessment Fall Risk Assessment Fall risk assessment: No Falls in past year MARIBEL-7 AMB Questionnaire MARIBEL-7 Date MARIBEL - 7 assessed: 01/01/24 Feeling nervous, anxious, or on edge: 1 = Several days Not being able to stop or control worryin = Not at all Worrying too much about different things: 1 = Several days Trouble relaxin = Not at all Being so restless that it is hard to sit still: 0 = Not at all Becoming easily annoyed or irritable: 1 = Several days Feeling afraid as if something awful might happen: 0 = Not at all Total MARIBEL-7 score (0-4 normal; 5-9 mild; 10-14 moderate; 15-21 severe): 3 Source: Developed by Drs. Mannie Rios, Raya Rubio, Ignacio Rawls and colleagues, with an educational dilia from [employer]. MARIBEL-7 Assessment Billing MARIBEL-7 Assessment Tool: MARIBEL-7 Assessment 76935 Review of Systems Const All systems reviewed & are unremarkable except as noted in HPI and below Eyes Reports no additional complaints, Denies change in vision and Denies other visual disturbances Card Denies chest pain at rest, Denies chest pain with activity, Denies edema, Denies irregular heart rhythm, Denies claudication, Denies dyspnea, Denies dyspnea on exertion, Denies orthopnea, Denies paroxysmal nocturnal dyspnea and Denies slow heart rate Resp Denies cough, Denies dyspnea and Denies dyspnea on exertion GI Denies abdominal pain, Denies change in bowel habits, Denies excessive flatus, Denies nausea and Denies vomiting Denies urinary incontinence, Denies urinary hesitancy and Denies urinary urgency Musc Denies abnormal gait, Denies atrophy, Denies deformity and Denies limited range of motion Skin/Breast Denies bleeding lesions, Denies changing lesions and Denies rash Neuro Denies abnormal gait and Denies lack of coordination Physical Exam Vital Signs: Last Vital Signs BP 130/72 01/01/24 17:33 BMI result Body Mass Index 19.7 Resp Auscultation: clear to auscultation bilaterally Cardio Heart sounds: S1 normal heart sound present and S2 normal heart sound present Neuro Romberg Test: Negative Assessment & Plan Assessment & Plan (1) Encounter for Medicare annual wellness exam: Code(s): Z00.00 - Encounter for general adult medical examination without abnormal findings Plan: Repeat in a year. Orders: Orders MM screening mammo BI Today Z12.31 - Encounter for screening mammogram for marquita gnant neoplasm of breast XR DEXA axial skeleton Today N95.9 - Unspecified menopausal and perimenopausal disorder Comprehensive [place]. Panel Fast Today Z00.00 - Encounter for general adult medical examination without abnormal findings Lipid Panel Today Z00.00 - Encounter for general adult medical examination without abnormal findings Quality Reporting (2019) Fall Risk Screening ([facility] 139) Fall risk assessment: No Falls in past year Depression/Bipolar (159/160/161/177) PHQ-9: Total score: 3 Coding Level of Care Code Medicare Subsequent (G0439) Diagnoses Encounter for Medicare annual wellness exam Z00.00 Additional Codes MARIBEL-7 Assessment Billing - MARIBEL-7 Assessment Tool: MARIBEL-7 Assessment [id number] ([id number]) Time Spent (min) 32 Advance Care Planning Did not discuss due to Cultural/Spiritual beliefs: Yes
[2024-01-01 17:33] VITALS: BP 130/72; BMI 19.7
== END 2024-01-01 18:05 | disposition home or self-care (01) ==
PROVIDERS: Visit Provider Internal Medicine
DX: Z00.00 Encounter for general adult medical examination without abnormal findings (principal)
CPT/HCPCS: G0439

== ENCOUNTER 2024-01-27 07:46 | Outpatient (REF) | payer MEDICARE, SELFPAY ==
[2024-01-27 09:36] LABS: Alanine Aminotransferase 47 U/L (0-31); Albumin Level 4.3 g/dL (3.5-5.0); Alkaline Phosphatase 108 U/L (39-117); Anion Gap 14 (12-20); Aspartate Amino Transferase 45 U/L (5-31); Bilirubin Total 0.6 mg/dL (0.0-1.0); Blood Urea Nitrogen 18 mg/dL (9-16); Calcium 9.8 mg/dL (8.4-10.2); Carbon Dioxide 28 mmol/L (22-29); Chloride 109 mmol/L (96-108); Cholesterol 193 mg/dL (<200); Estimated Glomerular Filt Rate > 60; Glucose Fasting 94 mg/dL (60-99); HDL Cholesterol 63 mg/dL (>40); LDL Cholesterol Calculated 115 mg/dL (<100); Potassium 4.6 mmol/L (3.3-5.1); Sodium 146 mmol/L (135-145); Triglycerides 79 mg/dL (<150)
== END 2024-01-27 07:47 | disposition home or self-care (01) ==
LOC: HO.LAB 07:46
PROVIDERS: PCP Internal Medicine; Visit Provider Internal Medicine
DX: Z00.00 Encounter for general adult medical examination without abnormal findings (principal); Z13.220 Encounter for screening for lipoid disorders
CPT/HCPCS: 36415; 80053; 80061

== ENCOUNTER 2024-01-29 07:46 | Outpatient (REF) | payer MEDICARE, SELFPAY ==
--- NOTE | ~2024-01-29 | MM_ITS ---
EXAMINATION: MM SCREENING DIGITAL BREAST TOMOSYNTHESIS, BILATERAL CLINICAL INFORMATION: Screening. Asymptomatic. COMPARISON: Mammography: This study is compared with prior exams dating back to 2016. TECHNIQUE: Digital breast tomosynthesis is performed in both the craniocaudal and mediolateral oblique views along with computer-aided detection (CAD). Synthesized 2D images are generated from the tomosynthesis. FINDINGS: There are scattered areas of fibroglandular density (ACR BI-RADS breast composition Category b). There are no significant masses, abnormal calcifications, or other abnormalities. There is tissue marker present in the right breast from prior benign percutaneous biopsy. MM/MM tomosynthesis screening BI IMPRESSION: No mammographic evidence of malignancy. ASSESSMENT: BI-RADS BI-RADS 2 - Benign Findings RECOMMENDATION: Routine annual mammography screening. 1 year F/U This examination should not preclude the clinical evaluation of a suspicious palpable abnormality. This patient's information was entered into a reminder system with a target due date for their next mammogram.
== END 2024-01-29 07:47 | disposition home or self-care (01) ==
LOC: HO.MAMMO 07:46
PROVIDERS: PCP Internal Medicine; Visit Provider Internal Medicine
DX: Z12.31 Encounter for screening mammogram for malignant neoplasm of breast (principal)
CPT/HCPCS: 77063; 77067

== ENCOUNTER → 2024-01-29 08:00 | Outpatient (BNV) | payer MEDICARE, SELFPAY | PROVIDERS: PCP Internal Medicine; Visit Provider Radiology Diagnostic Radiology | DX: Z12.31 Encounter for screening mammogram for malignant neoplasm of breast (principal) | CPT/HCPCS: 77063; 77067 ==

== ENCOUNTER 2024-02-22 14:01 | Outpatient (REF) | payer MEDICARE, SELFPAY ==
[2024-02-22 15:40] LABS: Appearance Urine Clear; Color Urine Yellow; Glucose Urine UA Negative (Negative); Leukocyte Esterase Urine Large (3+) (Negative); Nitrite Urine Negative (Negative); Specific Gravity - Urine <= 1.005 (1.005-1.025); UMIC TRIGGER UACC YES; Urine Blood Small (1+) (Negative); Urine Ketones Negative (Negative); Urine Protein Negative (Neg-Trace)
[2024-02-22 16:29] LABS: Bacteria Urine 1+ (None Seen); Hyaline Casts Urine 0-2 /LPF (0-2); RBC Urine 0-2 /HPF (0-2); Squamous Epithelial Cell Urine 0-2 /HPF (0-2); UACC Culture Trigger YES; WBC Urine >50 /HPF (0-5)
== END 2024-02-22 14:02 | disposition home or self-care (01) ==
LOC: HO.LAB 14:01
PROVIDERS: PCP Internal Medicine; Visit Provider Internal Medicine
DX: R39.9 Unspecified symptoms and signs involving the genitourinary system (principal)
CPT/HCPCS: 81001; 87086; 87088; 87186

== ENCOUNTER 2024-03-08 07:50 | Outpatient (REF) | payer MEDICARE, SELFPAY ==
--- NOTE | ~2024-03-08 | US_ITS ---
EXAMINATION: US COMPLETE ABDOMEN WITH LIVER ELASTOGRAPHY CLINICAL INFORMATION: Elevated transaminase levels. COMPARISON: CT abdomen and pelvis dated 03/03/2015; renal ultrasound dated 11/06/2015. TECHNIQUE: Real-time imaging of the abdominal viscera. Noninvasive ultrasound liver fibrosis assessment is performed using Joi ElastPQ point quantification shear wave elastography (2D-SWE) with a C5-2 MHz transducer. Multiple elastography samples are obtained. FINDINGS: PANCREAS: Normal. The visualized pancreatic head and body are normal in appearance. The remainder of the pancreas is obscured from visualization by the overlying bowel gas. ABDOMINAL AORTA: The proximal, middle, and distal aortic segments are normal in caliber. INFERIOR VENA CAVA: Visualized portions are normal. LIVER: Normal. The liver demonstrates normal size, contour and echogenicity. No focal lesion. There is borderline intrahepatic biliary duct dilatation. The right lobe measures 14.1 cm in length. The left lobe measures 8.5 cm in length. Portal flow is towards the liver (hepatopetal). Shear wave liver elastography median stiffness is 1.47 m/s (reference: normal median stiffness is 1.3 m/s or less). IQR/median stiffness to assess sampling precision is 0.10 (reference: good quality data set is IQR/median stiffness of 0.15 or less). GALLBLADDER: A 2.6 cm mobile gallstone is seen. The gallbladder is physiologically distended without evidence of sludge, polyps, wall thickening or pericholecystic fluid. COMMON BILE DUCT: Normal in caliber measuring 0.6 cm in diameter. RIGHT KIDNEY: Normal. No hydronephrosis. No renal calculi or focal parenchymal lesions. The kidney measures 10.0 cm in maximum dimension. LEFT KIDNEY: Normal. No hydronephrosis. No renal calculi or focal parenchymal lesions. The kidney measures 8.8 cm in maximum dimension. SPLEEN: Normal. The spleen measures 11.2 cm in maximum dimension. FREE FLUID: None. US/US abdomen comp w elastography IMPRESSION: 1. There is borderline intrahepatic biliary ductal dilatation. 2. Liver elastography: In the absence of other known clinical signs, measurements rule out compensated advanced chronic liver disease. If there are known clinical signs, further testing may be needed for confirmation. 3. There is cholelithiasis. REFERENCE: Society of Radiologists in Ultrasound Liver Stiffness Thresholds (2020): LIVER STIFFNESS THRESHOLDS: *Liver Stiffness equal or less than 1.3 m/s: High probability of being normal. *Liver Stiffness less than 1.7 m/s: In the absence of other known clinical signs, rules out compensated advanced chronic liver disease. *Liver Stiffness 1.7-2.1 m/s: Suggestive of compensated advanced chronic liver disease but need further test for confirmation. *Liver Stiffness over 2.1 m/s: Rules in compensated advanced chronic liver disease. *Liver Stiffness over 2.4 m/s: Suggestive of clinically significant portal hypertension. QUALITY OF DATA SET: *IQR/Median value equal or less than 0.15 implies a quality data set. *IQR/Median value over 0.15 implies a poor quality data set. SIGNIFICANT CHANGE FROM PRIOR EXAM: Significant change if liver stiffness measurement is 10% or greater from prior exam. OTHER CONSIDERATIONS: The stage of liver fibrosis may be overestimated in the setting of acute hepatitis, liver inflammation, elevated liver function tests, hepatic vascular congestion, obstructive cholestasis, non-fasting state, and infiltrative diseases such as amyloidosis and lymphoma. In some patients with NAFLD, the liver stiffness thresholds for compensated advanced chronic liver disease may be lower. In causes other than viral hepatitis and NAFLD, liver stiffness thresholds are not well established.
== END 2024-03-08 07:51 | disposition home or self-care (01) ==
LOC: HO.US 07:50
PROVIDERS: PCP Internal Medicine; Visit Provider Internal Medicine
DX: R74.01 Elevation of levels of liver transaminase levels (principal)
CPT/HCPCS: 76700; 76981

== ENCOUNTER 2024-04-08 15:15 | Outpatient (AMB) | payer MEDICARE, SELFPAY ==
--- NOTE | 2024-04-08 15:18 | A.OFFVIS_ITS ---
Vital Signs 04/08/24 15:22 Height 5 ft 1.5 in Weight 109 lb BMI 20.3 BP 135/61 Blood Pressure Location Rt brachial Position Sitting Pulse 87 Intake Visit Reasons: Calculus of gallbladder w/ cholecysititis Intake Note: Patient referred by pcp Dr. Chandler Faria for calculus of gallbladder w/ cholecystitis. Patient c/o: denies pain or discomfort. Diarrhea w/greasy food. ABD US: 03-08-24. 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 Patient has never had any postprandial or fatty food intolerance. She has been jaundiced before. Patient tolerates a diet. He is regular bowel habits. She has no other GI issues or complaints. Chart was reviewed and patient evaluated. Status post x2, appendectomy, tonsil PFSH Medical History Sigmoid diverticulitis Kidney stone Anxiety Surgical History H/O colonoscopy History of tonsillectomy History of section History of appendectomy Family History Father CVD (cardiovascular disease) Mother Lung cancer Diabetes Maternal Uncle Colon cancer Maternal Grandmother Cancer Social History Household Members: Children Housing: House Do you presently have visiting nurse or other home services: No Alcohol intake: current Alcohol intake frequency: holidays/special occasions only Alcohol type: hard liquor Patient Tobacco Use Status: Former Tobacco user Tobacco use type: Cigarette e-Cigarette/Vaping Use: Never Used Second Hand Smoke Exposure: No service: No Current occupational status: employed Cognitive needs: No Hearing needs: No Vision needs: No Physical Exam Vital Signs: Last Vital Signs Pulse 87 04/08/24 15:22 BP 135/61 04/08/24 15:22 BMI result Body Mass Index 20.3 Eyes Other: Anicteric GI Other: Abdomen is soft, benign, nontender Assessment & Plan Assessment & Plan (1) Asymptomatic cholelithiasis: Code(s): K80.20 - Calculus of gallbladder without cholecystitis without obstruction Category: Surgical Plan Patient has incidental finding of gallstones but is asymptomatic. Current plan is to treat the patient conservatively. Should she develop any biliary symptoms which were reviewed, she has been instructed to contact the office. Otherwise she will follow-up p.r.n.. All questions answered. Coding Level of Care Code New Pt Level 4 (13202) Diagnoses Asymptomatic cholelithiasis K80.20
[2024-04-08 15:22] VITALS: BP 135/61; PULSE 87; BMI 20.3
== END 2024-04-08 15:34 | disposition home or self-care (01) ==
PROVIDERS: PCP Internal Medicine; Visit Provider Surgery
DX: K80.20 Calculus of gallbladder without cholecystitis without obstruction (principal)
CPT/HCPCS: 99203

== ENCOUNTER → 2024-04-08 15:15 | Outpatient (BNVA) | payer MEDICARE, SELFPAY | PROVIDERS: PCP Internal Medicine; Visit Provider Surgery | DX: K80.20 Calculus of gallbladder without cholecystitis without obstruction (principal) | CPT/HCPCS: 99202 ==

== ENCOUNTER 2024-07-23 17:10 | Outpatient (AMB) | payer MEDICARE, SELFPAY ==
[2024-07-23 17:12] VITALS: BP 130/78; BMI 20.6
--- NOTE | 2024-07-23 17:12 | A.OFFPC_ITS ---
Vital Signs 07/23/24 17:12 Height 5 ft 1.5 in Weight 111 lb BMI 20.6 BP 130/78 Blood Pressure Location Lt brachial Position Sitting Intake Visit Reasons: MGUS Ep Technologist Required: No Accompanied by: Self / Same As Patient Allergies levofloxacin [Levaquin] Adverse Reaction (Intermediate, Verified 07/23/24 17:27) nausea and vomiting Medication List - Last Reconciled 07/23/24 by Lulu Faria MD clonazepam 0.5 mg PO DAILY PRN 30 days Tobacco use date assessed: 07/23/24 Fall risk assessment: No Falls in past year Last assessed Fall Risk: 07/23/24 Dental Screening Dental Screen Date: 07/23/24 Did you have a dental visit in the last 12 months?: Yes Did you have a dental problem in the last 6 months where you did not have access to dental care?: No Was dental information given to patient?: Patient has dentist HPI HPI Comments History of Present Illness Details This is a 69-year-old female with anxiety that comes today for follow- up on her anxiety. Has been well controlled with benzodiazepines as needed. She is aware can cause addiction and sedation. Denies any chest pain or shortness on breath. [facility] Medical History Sigmoid diverticulitis Kidney stone Anxiety Surgical History H/O colonoscopy History of tonsillectomy History of section History of appendectomy Family History Father CVD (cardiovascular disease) Mother Lung cancer Diabetes Maternal Uncle Colon cancer Maternal Grandmother Cancer Social History Household Members: Children Housing: House Do you presently have visiting nurse or other home services: No Alcohol intake: current Alcohol intake frequency: holidays/special occasions only Alcohol type: hard liquor Patient Tobacco Use Status: Former Tobacco user Tobacco use type: Cigarette e-Cigarette/Vaping Use: Never Used Second Hand Smoke Exposure: No service: No Current occupational status: employed Current occupational exposures/hazards: No Cognitive needs: No Hearing needs: No Vision needs: No Questionnaire Thrive Questionnaire Date Thrive assessed: 03/18/24 Are you currently unemployed and looking for a job?: No MARIBEL-7 AMB Questionnaire MARIBEL-7 Date MAIRBEL - 7 assessed: 01/01/24 Source: Developed by Drs. Mannie Rios, Raya Rubio, Ignacio Rawls and colleagues, with an educational dilia from [employer]. Review of Systems Const All systems reviewed & are unremarkable except as noted in HPI and below Card Denies chest pain at rest, Denies chest pain with activity, Denies edema, Denies irregular heart rhythm, Denies claudication, Denies dyspnea, Denies dyspnea on exertion, Denies orthopnea, Denies paroxysmal nocturnal dyspnea and Denies slow heart rate Resp Denies cough, Denies dyspnea and Denies dyspnea on exertion GI Denies abdominal pain, Denies change in bowel habits, Denies excessive flatus, Denies nausea and Denies vomiting Denies urinary incontinence, Denies urinary hesitancy and Denies urinary urgency Musc Denies abnormal gait, Denies atrophy, Denies deformity and Denies limited range of motion Skin/Breast Denies bleeding lesions, Denies changing lesions and Denies rash Neuro Denies abnormal gait, Denies behavioral changes and Denies lack of coordination Psych Denies behavioral changes Physical exam (Primary Care) Vital Signs: Last Vital Signs BP 130/78 07/23/24 17:12 BMI result Body Mass Index 20.6 Tobacco/Smoking Status: Tobacco use Status Tobacco use date assessed 07/23/24 07/23/24 17:16 Patient Tobacco Use Status Former Tobacco user 07/23/24 17:16 Tobacco use type Cigarette 07/23/24 17:16 e-Cigarette/Vaping Use Never Used 07/23/24 17:16 Thrive Assessment: Date of Thrive Assessment Date Thrive assessed 01/01/24 07/23/24 17:16 Resp Effort & Inspection: normal respiratory effort Auscultation: clear to auscultation bilaterally Cardio Jugular venous distension: no JVD Rate: regular rate Rhythm: regular rhythm Heart sounds: S1 normal heart sound present and S2 normal heart sound present Extrem General: Yes full ROM Office Procedures Flu Questionnaire Does the patient have a severe egg allergy?: No Immunizations Fluarix Triv [id number] (PF) 45 mcg (15 mcg x 3)/0.5 mL IM syringe Performing Provider: Lulu Faria MD [place] [facility] Documented (not given) by: IRVIN Epps on 07/23/24 17:17 Reason Not Given: Patient Refused Coding Level of Care Code Est Pt Level 3 (34659) Complex EM visit Add On G2211 Diagnoses Anxiety F41.9 Time Spent (min) 19 Assessment & Plan Assessment & Plan (1) Anxiety: Code(s): F41.9 - Anxiety disorder, unspecified Category: Medical Plan: Continue benzodiazepines as needed. Orders: Orders Comprehensive [place]. Panel Fast 5 Months R74.01 - Elevation of levels of liver transaminase levels Influenza 8717-1904 Immunization Today Z23 - Encounter for immunization Lipid Panel 5 Months E78.5 - Hyperlipidemia, unspecified Medications: Refilled 2 clonazepam 0.5 mg PO DAILY PRN 30 tabs 0RF anxiety 30 days
== END 2024-07-23 17:43 | disposition home or self-care (01) ==
PROVIDERS: PCP Internal Medicine; Visit Provider Internal Medicine
DX: Z23 Encounter for immunization (principal); F41.9 Anxiety disorder, unspecified

== ENCOUNTER → 2024-07-23 17:10 | Outpatient (BNVA) | payer MEDICARE, SELFPAY | PROVIDERS: PCP Internal Medicine; Visit Provider Internal Medicine | DX: F41.9 Anxiety disorder, unspecified (principal) | CPT/HCPCS: 90471; 99212 ==

== ENCOUNTER 2024-09-03 13:54 | Outpatient (REF) | payer MEDICARE, SELFPAY ==
[2024-09-03 14:59] LABS: Appearance Urine Clear; Color Urine Yellow; Glucose Urine UA Negative (Negative); Leukocyte Esterase Urine Trace (Negative); Nitrite Urine Negative (Negative); UMIC TRIGGER UACC YES; Urine Blood Negative (Negative); Urine Ketones Negative (Negative); Urine Protein Negative (Neg-Trace)
[2024-09-03 15:03] LABS: Bacteria Urine None Seen (None Seen); Hyaline Casts Urine 0-2 /LPF (0-2); RBC Urine 0-2 /HPF (0-2); Squamous Epithelial Cell Urine 0-2 /HPF (0-2); WBC Urine 0-5 /HPF (0-5)
== END 2024-09-03 13:55 | disposition home or self-care (01) ==
LOC: HO.LAB 13:54
PROVIDERS: PCP Internal Medicine; Visit Provider Internal Medicine
DX: R39.9 Unspecified symptoms and signs involving the genitourinary system (principal)
CPT/HCPCS: 81001; 81003

== ENCOUNTER 2025-01-02 17:15 | Outpatient (AMB) | payer MEDICARE, SELFPAY ==
--- NOTE | 2025-01-02 17:23 | AM.OFFVISMDC ---
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 She does not have the pneumonia vaccine and prefers not to receive it at this time. Her preventive screening is largely up to date with a scheduled mammogram for February and a normal colonoscopy two years ago at age 67. Osteoporosis screening has been discussed as she has not undergone a bone density test since turning 62, a routine measure for women to evaluate the risk of fractures due to osteoporosis. PPP handed to patient. [place] of care reviewed. Regarding her medical history, depression is minimal and appears situational, related to work stress. Clonazepam use is limited and as needed. Surgical history includes two C-sections, appendectomy, and tonsillectomy. Family history notes her father's from heart disease at 77 and her mother's from diabetes and lung cancer at 85. Lifestyle choices include moderate alcohol consumption on special occasions and previous smoking cessation, with an active lifestyle noted through dancing activities. [facility] Medical History Sigmoid diverticulitis Kidney stone Anxiety Surgical History H/O colonoscopy History of tonsillectomy History of section History of appendectomy Family History Father CVD (cardiovascular disease) Mother Lung cancer Diabetes Maternal Uncle Colon cancer Maternal Grandmother Cancer Social History Household Members: Children Housing: House Do you presently have visiting nurse or other home services: No Alcohol intake: current Alcohol intake frequency: holidays/special occasions only Alcohol type: hard liquor Patient Tobacco Use Status: Former Tobacco user Tobacco use type: Cigarette e-Cigarette/Vaping Use: Never Used Second Hand Smoke Exposure: No service: No Current occupational status: employed Current occupational exposures/hazards: No Cognitive needs: No Hearing needs: No Vision needs: No Questionnaire Medicare Wellness Checkup What [age]?: [age] What gender do you identify with?: female During the past 4 weeks, how much have you been bothered by emotional problems such as feeling anxious, depressed, irritable, sad or downhearted, and blue?: not at all During the past 4 weeks, has your physical & emotional health limited your social activities with family, friends, neighbors, or groups?: not at all During the past 4 weeks, how much bodily pain have you generally had?: mild pain During the past 4 weeks, was someone available to help you if you needed & wanted help?: yes, as much as I wanted During the past 4 weeks, what was the hardest physical activity you could do for at least 2 minutes?: moderate Can you get to places out of walking distance without help? (For eg., can you travel alone on buses, taxis or drive your car?): Yes Can you go shopping for groceries or clothes without someone's help?: Yes Can you prepare your own meals?: Yes Can you do your housework without help?: Yes Because of any health problems, do you need the help of another person with your personal care needs such as eating, bathing, dressing or getting around the house?: No Can you handle your own money without help?: Yes During the past 4 weeks, how would you rate your health in general?: good During the past 4 weeks how have things been going for you?: pretty well Are you having difficulties driving your car?: no Do you always fasten your seat belt when you are in a car?: yes, usually During past 4 weeks, have you been bothered by the following: never: Falling or dizzy when standing up, Sexual problems?, Trouble eating well?, Teeth or denture problems? and Problems using the telephone? and sometimes: Tiredness or fatigue? Have you fallen 2 or more times in the past year?: No Are you afraid of falling?: No Are you a smoker?: no During the past 4 weeks, how many drinks of wine, beer, or other alcoholic beverages did you have?: no alcohol at all Do you exercise for about 20 minutes 3 or more times a week?: yes, some of the time Have you been given information to help with the following?: no: Hazards in your house that might hurt you? and no: Keeping track of your medications? How often do you have trouble taking medicines the way you have been told to take them?: I do not have to take medicine How confident are you that you can control & manage most of your health problems?: I do not have any health problems What is your race?: White Mini Mental State Exam (MMSE) Orientation What is the (year) (season) (date) (day) (month)?: year, season, date, day and month Where are we (state) (county) (town or city) (hospital) (floor)?: state, county, town or city, hospital/clinic and floor Registration Name of 3 unrelated objects clearly and slowly, then ask patient to repeat all 3 of them. (1st repeat determines score. Make sure they can repeat all three): object 1, object 2 and object 3 Attention & Calculation (CHOOSE ONE) Spell WORLD backwards (DLROW): 5 letters Recall Ask patient to repeat the 3 items from question #3.: object 1, object 2 and object 3 Language Show patient a wristwatch & ask what it is. Repeat for pencil.: watch and pencil Ask the patient to repeat the phrase 'No ifs, ands, or buts' after you.: incorrect Ask the patient to 'take a piece of paper with their right hand' 'fold paper in half' 'place paper on floor': take paper in right hand, fold paper in half and place paper on floor Print the sentence 'CLOSE YOUR EYES' on a piece. If patient actually closes eyes then score.: followed written direction Give patient a blank piece of paper & ask to write a sentence. Score if it contains a noun & verb.: sentence contains subject and verb Ask patient to copy figure of intersecting pentagons exactly. Score if all 10 angles & 2 intersects are included.: all 10 angles present & 2 are intersected Score Score: 29 Activity of Daily Living Bathing - sponge bath, tub bath or shower: receives no assistance (gets in/out by self, if usual bathing means Dressing - getting clothes from closets & drawers, including inner/outer garments & fasteners.: gets clothes & gets completely dressed without help Toileting - going to the 'toilet room' for urine/bowel elimination & cleaning self/arranging clothes: goes to toilet room, cleans self, arranges clothes without help Transfer: moves in & out of bed and chair without help (may use support object) Continence: has occasional 'accidents' Feeding: feeds self without help Total Score: 0 Information obtained from: patient Using telephone: independent Traveling: independent Shopping: independent Preparing meals: independent Housework: independent Taking medicine: independent Managing money: independent PHQ-9 Over the last 2 weeks, how often have you been bothered by any of the following problems? 1. Little interest or pleasure in doing things: not at all 2. Feeling down, depressed, or hopeless: not at all 3. Trouble falling or staying asleep, or sleeping too much: several days 4. Feeling tired or having little energy: several days 5. Poor appetite or overeating: not at all 6. Feeling bad about yourself - or that you are a failure or have let yourself or your family down: not at all 7. Trouble concentrating on things, such as reading the newspaper or watching television: not at all 8. Moving or speaking so slowly that other people could have noticed. Or the opposite - being so fidgety or restless that you have been moving around a lot more than usual: not at all 9. Thoughts that you would be better off or of hurting yourself in some way: not at all Total score: 2 Depression Screening Interpretation: Positive Depression Screening Follow-up: Existing condition and Follow-up Visit Requested Depression Screening Done: Yes 63400 - PHQ-9 Billing: Yes Source: Developed by Drs. Mannie Rios, Raya Rubio, Ignacio Rawls and colleagues, with an educational dilia from [employer]. Fall Risk Assessment Fall Risk Assessment Fall risk assessment: No Falls in past year AUDIT C Alcohol Use Questionnaire (AUDIT-C) 1. How often do you have a drink containing alcohol?: Monthly or less 2. How many drinks containing alcohol do you have on a typical day when you are drinking?: 1 or 2 3. How often do you have six or more drinks on one occasion?: Never Total Score: 1 Score Reviewed/Action Taken: No MARIBEL-7 AMB Questionnaire MARIBEL-7 Date MARIBEL - 7 assessed: 01/02/25 Feeling nervous, anxious, or on edge: 1 = Several days Not being able to stop or control worryin = Not at all Worrying too much about different things: 0 = Not at all Trouble relaxin = Not at all Being so restless that it is hard to sit still: 0 = Not at all Becoming easily annoyed or irritable: 0 = Not at all Feeling afraid as if something awful might happen: 0 = Not at all Total MAIRBEL-7 score (0-4 normal; 5-9 mild; 10-14 moderate; 15-21 severe): 1 Source: Developed by Drs. Mannie Rios, Raya Rubio, Ignacio Rawls and colleagues, with an educational dilia from [employer]. MARIBEL-7 Assessment Billing MARIBEL-7 Assessment Tool: MARIBEL-7 Assessment 68545 Thrive Questionnaire Date Thrive assessed: 01/01/24 Are you currently unemployed and looking for a job?: No Review of Systems Const All systems reviewed & are unremarkable except as noted in HPI and below Card Denies chest pain at rest, Denies chest pain with activity, Denies edema, Denies irregular heart rhythm, Denies claudication, Denies dyspnea, Denies dyspnea on exertion, Denies orthopnea, Denies paroxysmal nocturnal dyspnea and Denies slow heart rate Resp Denies cough, Denies dyspnea and Denies dyspnea on exertion GI Denies abdominal pain, Denies change in bowel habits, Denies excessive flatus, Denies nausea and Denies vomiting Denies urinary incontinence, Denies urinary hesitancy and Denies urinary urgency Neuro Denies confusion Psych Denies confusion Physical Exam Vital Signs: Last Vital Signs BP 120/72 01/02/25 17:25 BMI result Body Mass Index 21.2 Const General: No confusion Orientation/consciousness: patient oriented x3 and No confusion Resp Effort & Inspection: normal respiratory effort Auscultation: clear to auscultation bilaterally Cardio Jugular venous distension: no JVD Rate: regular rate Rhythm: regular rhythm Heart sounds: S1 normal heart sound present and S2 normal heart sound present Neuro General: patient oriented x3, no focal motor deficits and No confusion Romberg Test: Negative Extrem General: Yes full ROM Psych Appearance: grossly normal Assessment & Plan Assessment & Plan (1) Encounter for Medicare annual wellness exam: Code(s): Z00.00 - Encounter for general adult medical examination without abnormal findings Plan: For today's visit, the pneumonia vaccine will not be administered following patient preference. Her mammogram appointment for February has been confirmed, and the results of a prior colonoscopy, which occurred two years ago and was normal, reassure us of no immediate need for repeat. Osteoporosis screening remains a priority; a DEXA scan is recommended due to lack of prior testing and is generally an insured procedure. Minimal depression related to work stress is managed conservatively without daily medication needs, using clonazepam effectively as needed. Her active lifestyle, which includes social dancing activities, supports her overall well-being, alongside a history free of substance overuse. Her family history directs attention towards cardiovascular and diabetes monitoring. Patient was informed and verbally consented to the use of an ambient scribe for clinic note documentation during this visit. During the visit, I highlighted the importance of osteoporosis screening, explaining the role of a DEXA scan in assessing fracture risk and its likely coverage by insurance as part of preventive care. We also discussed the significance of regular scheduled mammograms and addressed her recent colonoscopy history with normal findings. The patient expressed understanding and agreement with maintaining the current management strategy for her minimal depression and occasional clonazepam use. I inquired into any other healthcare provider involvement, which she denied, reinforcing the importance of continued health maintenance, including regular physical activity and alcohol moderation. Orders: Orders Lipid Panel Today E78.5 - Hyperlipidemia, unspecified Comprehensive [place]. Panel Fast Today F41.9 - Anxiety disorder, unspecified Patient Instructions: - Continue with the scheduled mammogram appointment in February. - Schedule a DEXA scan for osteoporosis screening. - Maintain an active lifestyle, including dancing activities. - Continue using clonazepam as needed for situational anxiety. - Ensure routine follow-ups for comprehensive healthcare maintenance. - Monitor for urinary incontinence symptoms and maintain hydration. - Report any new symptoms or changes in health status promptly. Quality Reporting (2019) Fall Risk Screening ([facility] 139) Fall risk assessment: No Falls in past year Depression/Bipolar (159/160/161/177) PHQ-9: Total score: 2 Coding Level of Care Code Medicare IPPE (G0402) Diagnoses Encounter for Medicare annual wellness exam Z00.00 Additional Codes MARIBEL-7 Assessment Billing - MARIBEL-7 Assessment Tool: MARIBEL-7 Assessment 85146 ([id number]) PHQ-9 - 19945 - PHQ-9 Billing: Yes ([id number]) Time Spent (min) 35 Advance Care Planning Advance Care Planning discussion: Exists, not on file
[2025-01-02 17:25] VITALS: BP 120/72; BMI 21.2
== END 2025-01-02 17:56 | disposition home or self-care (01) ==
LOC: HO.HMCH 17:16
PROVIDERS: PCP Internal Medicine; Visit Provider Internal Medicine
DX: Z00.00 Encounter for general adult medical examination without abnormal findings (principal)

== ENCOUNTER → 2025-01-02 17:15 | Outpatient (BNVA) | payer MEDICARE, SELFPAY | PROVIDERS: PCP Internal Medicine; Visit Provider Internal Medicine | DX: Z00.00 Encounter for general adult medical examination without abnormal findings (principal) | CPT/HCPCS: 96127; G0402 ==

== ENCOUNTER 2025-02-15 07:24 | Outpatient (REF) | payer MEDICARE, SELFPAY ==
--- NOTE | ~2025-02-15 | MM_ITS ---
EXAMINATION: MM SCREENING DIGITAL BREAST TOMOSYNTHESIS, BILATERAL CLINICAL INFORMATION: Screening. Asymptomatic. COMPARISON: Mammography: Comparison is made with available priors TECHNIQUE: Digital breast mammography with tomosynthesis is performed in both the craniocaudal and mediolateral oblique views along with computer-aided detection (CAD). FINDINGS: There are scattered areas of fibroglandular density (ACR BI-RADS breast composition Category b). Right marker clip. There are no significant masses, abnormal calcifications, or other abnormalities. MM/MM tomosynthesis screening BI IMPRESSION: No mammographic evidence of malignancy. ASSESSMENT: BI-RADS BI-RADS 1 - Negative RECOMMENDATION: Routine annual mammography screening. 1 year F/U This examination should not preclude the clinical evaluation of a suspicious palpable abnormality. This patient's information was entered into a reminder system with a target due date for their next mammogram. Electronically signed by: Alisson Chen DO 02/22/2025 11:57 AM EDT
[2025-02-15 09:26] LABS: Alanine Aminotransferase 27 U/L (0-31); Albumin Level 4.1 g/dL (3.5-5.0); Alkaline Phosphatase 108 U/L (39-117); Anion Gap 12 (12-20); Aspartate Amino Transferase 32 U/L (5-31); Bilirubin Total 0.7 mg/dL (0.0-1.0); Blood Urea Nitrogen 14 mg/dL (9-16); Calcium 9.3 mg/dL (8.4-10.2); Carbon Dioxide 27 mmol/L (22-29); Chloride 108 mmol/L (96-108); Cholesterol 199 mg/dL (<200); Estimated Glomerular Filt Rate > 60; Glucose Fasting 102 mg/dL (60-99); HDL Cholesterol 59 mg/dL (>40); LDL Cholesterol Calculated 126 mg/dL (<100); Potassium 4.4 mmol/L (3.3-5.1); Sodium 143 mmol/L (135-145); Total Protein 6.9 g/dL (6.5-8.0); Triglycerides 72 mg/dL (<150)
[2025-02-15 09:40] LABS: Appearance Urine Clear; Color Urine Yellow; Glucose Urine UA Negative (Negative); Leukocyte Esterase Urine Small (1+) (Negative); Nitrite Urine Negative (Negative); UMIC TRIGGER UACC YES; Urine Blood Negative (Negative); Urine Ketones Negative (Negative); Urine Protein Negative (Neg-Trace)
[2025-02-15 09:56] LABS: Bacteria Urine None Seen (None Seen); Hyaline Casts Urine 0-2 /LPF (0-2); RBC Urine 0-2 /HPF (0-2); Squamous Epithelial Cell Urine 0-2 /HPF (0-2); UACC Culture Trigger YES; WBC Urine 0-5 /HPF (0-5)
== END 2025-02-15 07:25 | disposition home or self-care (01) ==
LOC: HO.MAMMO 07:24
PROVIDERS: PCP Internal Medicine; Visit Provider Internal Medicine
DX: Z12.31 Encounter for screening mammogram for malignant neoplasm of breast (principal); R74.01 Elevation of levels of liver transaminase levels; E78.5 Hyperlipidemia, unspecified; R30.0 Dysuria
CPT/HCPCS: 36415; 77063; 77067; 80053; 80061; 81001; 87086

== ENCOUNTER → 2025-02-15 07:30 | Outpatient (BNV) | payer MEDICARE, SELFPAY | PROVIDERS: PCP Internal Medicine; Visit Provider Internal Medicine | DX: Z12.31 Encounter for screening mammogram for malignant neoplasm of breast (principal) | CPT/HCPCS: 77063; 77067 ==